=== PATIENT | female | born 1985 | race Two or more races ===

== ENCOUNTER → 2017-06-16 | Outpatient (CLI) | payer SELFPAY ==
[2017-06-16 09:47] LABS: ABSOLUTE EOSINOPHILS # (AUTO) 0.2 10^3/uL (0.0-0.6); ABSOLUTE LYMPHOCYTES (AUTO) 1.8 10^3/uL (0.5-4.7); ABSOLUTE MONOCYTES (AUTO) 0.5 10^3/uL (0.1-1.4); ABSOLUTE NEUT (AUTO) 7.4 10^3/uL (1.7-8.2); BASOPHILS % (AUTO) 0.5 % (0-2); EOSINOPHILS % (AUTO) 1.6 % (0-6); HEMATOCRIT 38.5 % (36.0-47.0); HEMOGLOBIN 13.4 g/dL (12.0-15.5); HGB HCT DIFFERENCE 1.7; LYMPHOCYTES % (AUTO) 18.6 % (13-45); MEAN CORPUSCULAR HEMOGLOBIN 30.5 pg (27.0-33.4); MEAN CORPUSCULAR HGB CONC 34.7 g/dL (32.0-36.0); MEAN CORPUSCULAR VOLUME 88 fl (80-97); MONOCYTES % (AUTO) 4.8 % (3-13); RED BLOOD COUNT 4.38 10^6/uL (3.72-5.28); RED CELL DISTRIBUTION WIDTH 12.1 % (11.5-14.0); SEGMENTED NEUTROPHILS % (AUTO) 74.5 % (42-78); WHITE BLOOD COUNT 9.9 10^3/uL (4.0-10.5)
[2017-06-16 10:33] LABS: ALANINE AMINOTRANSFERASE 40 U/L (9-52); ALBUMIN 4.2 g/dL (3.5-5.0); ALKALINE PHOSPHATASE 80 U/L (38-126); ANION GAP 13 (5-19); ASPARTATE AMINO TRANSFERASE 21 U/L (14-36); BILIRUBIN,DIRECT 0.2 mg/dL (0.0-0.4); BILIRUBIN,TOTAL 0.3 mg/dL (0.2-1.3); BLOOD UREA NITROGEN 7 mg/dL (7-20); CARBON DIOXIDE 24 mmol/L (22-30); CHLORIDE 105 mmol/L (98-107); CREATININE RESULT 0.59 mg/dL (0.52-1.25); GLUCOSE 77 mg/dL (75-110); POTASSIUM 4.6 mmol/L (3.6-5.0); SODIUM 142.2 mmol/L (137-145)
[2017-06-16 11:01] LABS: THYROID STIMULATING HORMONE 0.27 uIU/mL (0.47-4.68)
== END ==
LOC: OD 08:44
PROVIDERS: ATTEND Internal Medicine
DX: E04.9 Nontoxic goiter, unspecified (principal)
CPT/HCPCS: 36415; 80053; 84439; 84443; 85025

== ENCOUNTER → 2017-06-20 | Outpatient (CLI) | payer SELFPAY | LOC: OD 11:57 | PROVIDERS: ATTEND Internal Medicine | DX: E03.9 Hypothyroidism, unspecified (principal); Z53.9 Procedure and treatment not carried out, unspecified reason ==

== ENCOUNTER 2018-07-20 10:58 | Emergency (ER) | payer SELFPAY ==
[2018-07-20 11:04] VITALS: BP 142/87
--- NOTE | 2018-07-20 11:56 | ER Document Report ---
HPI - HPI Patient complains to provider of: hand pain Time Seen by Provider: 07/20/18 11:11 Onset: Other - 2 days Onset/Duration: Gradual Quality of pain: Other - Numbness and tingling to both left and right hand and arm. Started 2 days ago when her father in [place] Pain Level: 0 Associated Symptoms: Other - Anxiety stress numbness and tingling in both arms and hands after her father 2 days ago Relieved by: Denies Similar symptoms previously: Yes Recently seen / treated by doctor: No - ROS ROS below otherwise negative: Yes - CONSTITUTIONAL Constitutional: DENIES: Fever, Chills - EENT EENT: DENIES: Sore Throat, Ear Pain, Nasal Drainage-Clear, Nasal Drainage- Purulent, Congestion, Eye problems - CARDIOVASCULAR Cardiovascular: DENIES: Chest pain - RESPIRATORY Respiratory: DENIES: Trouble Breathing, Coughing - GASTROINTESTINAL Gastrointestinal: DENIES: Abdominal Pain, Nausea, Patient vomiting, Diarrhea, Constipation, Black / Bloody Stools - URINARY Urinary: DENIES: Dysuria, Urgency, Frequency - REPRODUCTIVE Reproductive: DENIES: :, Postmenopausal, Abnormal bleeding / discharge - MUSCULOSKELETAL Musculoskeletal: REPORTS: Extremity pain. DENIES: Back Pain, Neck Pain, Swelling - DERM Skin Color: Normal Skin Problems: None Past Medical History - General Information source: Patient - Social History Smoking Status: Never Smoker Cigarette use (# per day): No Chew tobacco use (# tins/day): No Smoking Education Provided: No Frequency of alcohol use: None Drug Abuse: None Lives with: Family Family History: Reviewed & Not Pertinent Patient has suicidal ideation: No Patient has homicidal ideation: No - Past Medical History Cardiac Medical History: Reports: None Pulmonary Medical History: Reports: None EENT Medical History: Reports: None Neurological Medical History: Reports: None Endocrine Medical History: Reports: None Renal/ Medical History: Reports: None Malignancy Medical History: Reports: None GI Medical History: Reports: None Musculoskeletal Medical History: Reports None Skin Medical History: Reports None Traumatic Medical History: Reports: None Infectious Medical History: Reports: None Surgical Hx: Negative Past Surgical History: Reports: None - Immunizations Immunizations up to date: Yes Vertical Provider Document - CONSTITUTIONAL Agree With Documented VS: Yes Exam Limitations: No Limitations General Appearance: WD/WN, No Apparent Distress - INFECTION CONTROL TRAVEL OUTSIDE OF THE [place] IN LAST 30 DAYS: No - HEENT HEENT: Atraumatic, Normal ENT Exam, Normocephalic, PERRLA - NECK Neck: Normal Inspection, Supple - RESPIRATORY Respiratory: Breath Sounds Normal, No Respiratory Distress, Chest Non-Tender - CARDIOVASCULAR Cardiovascular: Regular Rate, Regular Rhythm - GI/ABDOMEN Gastrointestinal: Abdomen Soft, Abdomen Non-Tender, No Organomegaly, Normal Bowel Sounds - MUSCULOSKELETAL/EXTREMETIES Musculoskeletal/Extremeties: MAEW, FROM, Non-Tender Notes: Patient has 5 out of 5 strength to shoulder elbow and wrist. 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 Patient has full range of motion to shoulders elbows and wrist. Patient is very anxious concerning her father passing away 2 days ago. States father lived in [place] and they gave him the wrong medicine causing him to . states she is very tearful since her father and all of her problems have started since her problem father - NEURO Level of Consciousness: Awake, Alert, Appropriate Motor/Sensory: No Motor Deficit, No Sensory Deficit Deep Tendon Reflexes: 2+ - DERM Integumentary: Warm, Dry, No Rash Course - Re-evaluation Re-evalutation: 07/20/18 11:59 Patient very anxious concerning her father's recent . She states that he was living in [place] and he was given the wrong medication and that he . Patient has a primary care doctor at [facility]. Patient was advised to go to [facility] and schedule an appointment to follow-up to monitor her anxiety and her pain in her arms. There is no acute injuries or acute changes in her health except for the stress from her father's . Discussed with Dr. Allen and she agreed patient should follow-up with her primary doctor. Will discharge home. - Vital Signs Vital signs: Temp Pulse Resp BP Pulse Ox 98.4 F 76 14 142/87 H 98 07/20/18 11:02 07/20/18 11:02 07/20/18 11:02 07/20/18 11:02 07/20/18 11:02 Discharge - Discharge Clinical Impression: Bilateral hand pain, anxiety parent Condition: Stable Disposition: HOME, SELF-CARE Additional Instructions: Arm Pain, Nonspecific We did not find an obvious cause for your arm pain. There's no sign of blood clot, infection, heart attack, stroke, or other serious disease. Most of the time, this type of pain goes away. If it does, no further evaluation is necessary. If pain continues or keeps coming back, we can do further testing. Possible causes of vague arm pain include muscle or joint inflammation, disc disease in the neck, pressure on the nerves and artery in the chest or armpit ("thoracic outlet syndrome"), or heart disease. Rest the arm. Pain can be eased with an antiinflammatory pain medicine such as ibuprofen. If the pain involves a small area, a heating pad might help. Call the doctor or return if the arm becomes swollen, weak, discolored, or increasingly painful, or if you develop any other significant change in your health. Anxiety The physician feels that some of your health problems are being caused by anxiety. Anxiety affects your health in many ways. Anxiety alone can cause palpitations, sweats, chest pains, abdominal pains, shortness of breath, and headaches. It contributes to ulcer disease, high blood pressure, irritable bowel syndrome, and has been shown to cause flare-ups of many other diseases. Anxiety is not a simple disorder to treat. If the anxiety is due to recent life stresses, you may simply need time to "work through" the changes. If the anxiety is due to an underlying unhappiness with yourself or due to psychiatric disturbance, professional help will be needed. Your physician can refer you for further help if needed. Anti-anxiety medication is occasionally given if the stress is acute or if you are having trouble sleeping. Chronic or frequent use of these medications is not a good idea because the body becomes reliant on it, preventing you from dealing with life's normal stresses. Acetaminophen Acetaminophen may be taken for pain relief or fever control. It's much safer than aspirin, offering a wider range of "safe" dosages. It is safe during . Some brand names are Tylenol, Panadol, Datril, Anacin 3, Tempra, and Liquiprin. Acetaminophen can be repeated every four hours. The following are maximum recommended dosages: WEIGHT Dose Drops Elixir Chewable( 80mg) (LBS.) drprs=droppers tsp=teaspoon 6 40 mg .4 ml (1/2) 6-11 80 mg .8 ml (full) 1/2 tsp 1 tab 12-16 120 mg 1 1/2 drprs 3/4 tsp 1 1/2 tabs 17-23 160 mg 2 drprs 1 tsp 2 tabs 24-30 240 mg 3 drprs 1 1/2 tsp 3 tabs 30-35 320 mg 2 tsp 4 tabs 36-41 360 mg 2 1/4 tsp 4 1 /2 tabs 42-47 400 mg 2 1/2 tsp 5 tabs 48-53 480 mg 3 tsp 6 tabs 54-59 520 mg 3 1/4 tsp 6 1 /2 tabs 60-64 560 mg 3 1/2 tsp 7 tabs 65-70 600 mg 3 3/4 tsp 7 1 /2 tabs 71-76 640 mg 4 tsp 8 tabs 77-82 720 mg 4 1/2 tsp 9 tabs 83-88 800 mg 5 tsp 10 tabs >89 pounds or adults 650 mg to 900 mg Acetaminophen can be repeated every four hours. Maximum daily dose not to exceed 4000 mg. These maximum recommended dosages are slightly higher than the dosages written on the product container, but these dosages are very safe and well below the toxic dosage for acetaminophen. Ibuprofen Ibuprofen is an excellent, safe drug for pain control. In addition, it has potent antiinflammatory effects which are beneficial, especially in the treatment of injuries, arthritis, or tendonitis. It's best to take ibuprofen with food. Persons with ulcer disease or allergy to aspirin should notify their physician of this before taking ibuprofen. Take the medication exactly as prescribed. Don't take additional doses unless instructed to do so by your doctor. If you develop wheezing, shortness of breath, hives, faintness, stomach pain, vomiting, or dark black stools, return for re-evaluation at once. Please call your primary doctor and schedule a follow-up appointment to ensure that you are pain to bilateral arms and hands resolves. [facility] FOLLOW-UP CARE: If you have been referred to a physician for follow-up care, call the physician s office for an appointment as you were instructed or within the next two days. If you experience worsening or a significant change in your symptoms, notify the physician immediately or return to the Emergency Department at any time for re-evaluation. Forms: Elevated Blood Pressure
== END 2018-07-20 11:59 | disposition home or self-care (01) ==
LOC: ER 10:58
DX: M79.641 Pain in right hand (principal); M79.642 Pain in left hand; F41.9 Anxiety disorder, unspecified; R20.0 Anesthesia of skin; R20.2 Paresthesia of skin; Z63.4 Disappearance and death of family member
CPT/HCPCS: 99283

== ENCOUNTER 2018-08-25 17:48 | Emergency (ER) | payer SELFPAY ==
--- NOTE | 2018-08-25 19:43 | ER Document Report ---
Addendum entered and electronically signed by EFRAÍN LAZO PA-C 08/26/18 08:46: Course - Re-evaluation Re-evalutation: 08/26/18 08:39 Of note, patient initially complained of bilateral adnexal pain then RLQ pain. Her abdominal exam was overall unremarkable: negative McBurney's point tenderness, negative psoas sign, no guarding or rebound tenderness, and when I struck her right heel there was no referred RLQ pain. Appendicitis was on my differential but I have low suspicion for it. Conversely, though, I could not elicit acute tenderness to deep palpation in the lower abdomen. But, with the c ervical motion tenderness and moderate white mucus discharge, bilateral pelvic pain, the diagnosis of PID is what I am most suspicious of and concerned for. Cervical os was visualized and not friable. - Vital Signs Vital signs: Temp Pulse Resp BP Pulse Ox 98.7 F 80 16 129/76 H 100 08/25/18 17:58 08/26/18 00:07 08/26/18 00:07 08/26/18 00:07 08/26/18 00:07 - Laboratory Result Diagrams: 08/25/18 19:56 08/25/18 19:56 Laboratory results interpreted by me: 08/25/18 08/25/18 19:56 19:56 WBC 15.8 H Absolute Neutrophils 11.1 H Sodium 135.7 L Potassium 3.5 L Beta HCG, Quant 39851.00 H Addendum entered and electronically signed by EFRAÍN LAZO PA-C 08/26/18 08:35: Course - Re-evaluation Re-evalutation: 08/26/18 08:34 Chlamydia and gonorrhea resulted negative. Spoke with [facility] hotel front desk clerk and confirmed patient has an appointment this morning for close follow up. - Vital Signs Vital signs: Temp Pulse Resp BP Pulse Ox 98.7 F 80 16 129/76 H 100 08/25/18 17:58 08/26/18 00:07 08/26/18 00:07 08/26/18 00:07 08/26/18 00:07 - Laboratory Result Diagrams: 08/25/18 19:56 08/25/18 19:56 Laboratory results interpreted by me: 08/25/18 08/25/18 19:56 19:56 WBC 15.8 H Absolute Neutrophils 11.1 H Sodium 135.7 L Potassium 3.5 L Beta HCG, Quant 30367.00 H Addendum entered and electronically signed by EFRAÍN LAZO PA-C 08/26/18 00:40: Course - Re-evaluation Re-evalutation: 08/26/18 00:[address] Allen after speaking with Dr. Park. Clarified that Dr. Park stated not to treat right now because of concerns for first trimester teratogenicity with the medications. I asked him if he wanted us to treat with doxycycline plus or minus Flagyl. He stated no do not treated with anything and just have her follow up. Chlamydia and gonorrhea were still pending. Plan is to follow-up on these labs tomorrow morning and if the Chlamydia gonorrhea is positive plan to call the patient and call the women's clinic. - Vital Signs Vital signs: Temp Pulse Resp BP Pulse Ox 98.7 F 80 16 129/76 H 100 08/25/18 17:58 08/26/18 00:07 08/26/18 00:07 08/26/18 00:07 08/26/18 00:07 - Laboratory Result Diagrams: 08/25/18 19:56 08/25/18 19:56 Laboratory results interpreted by me: 08/25/18 08/25/18 19:56 19:56 WBC 15.8 H Absolute Neutrophils 11.1 H Sodium 135.7 L Potassium 3.5 L Beta HCG, Quant 11285.00 H Addendum entered and electronically signed by EFRAÍN LAZO PA-C 08/26/18 00:02: Discharge - Discharge Clinical Impression: PID (acute pelvic inflammatory disease) Condition: Good Disposition: HOME, SELF-CARE Additional Instructions: You were seen in the emergency department this evening for abdominal pain. Pelvic exam did show us that you have pelvic inflammatory disease. I spoke with the on-call voltmeter operator who says it is too risky to treat you with the appropriate antibiotics at this time. It is critical and extremely important that you follow-up with your voltmeter operator at the women's clinic tomorrow morning. If you develop high fever, vaginal bleeding, severe abdominal pain please immediately return to the emergency department. If you pass out or become lightheaded with bleeding please return to the emergency department. Referrals: JAGDISH VILLASENOR FNP [Primary Care Provider] - Follow up as needed Original Note: ED General - General Chief Complaint: OB Problem (<20wks) Stated Complaint: ABDOMINAL PAIN, BACK PAIN Time Seen by Provider: 08/25/18 19:17 Notes: 33-year-old Norwegian-speaking female presents to the emergency department for left adnexal pain times 3 days. Patient states the pain feels like she is having a contraction that radiates around to her left lower back. Patient denies any vaginal bleeding. Patient states there was a small amount of white discharge yesterday one time. Patient denies any urinary symptoms. Patient denies fevers, chills, nausea, vomiting, diarrhea. Patient denies chest pain or dyspnea. Patient is unsure of her Rh factor but states she has never had to receive RhoGam shot before. TRAVEL OUTSIDE OF THE [place] IN LAST 30 DAYS: No - Related Data Allergies/Adverse Reactions: No Known Allergies Allergy (Verified 08/25/18 17:48) Past Medical History - Social History Smoking Status: Never Smoker Chew tobacco use (# tins/day): No Frequency of alcohol use: None Drug Abuse: None Family History: Reviewed & Not Pertinent Patient has suicidal ideation: No Patient has homicidal ideation: No Renal/ Medical History: Denies: Hx Peritoneal Dialysis - Immunizations Immunizations up to date: Yes Review of Systems - Review of Systems Constitutional: See HPI EENT: No symptoms reported Cardiovascular: See HPI Respiratory: See HPI Gastrointestinal: See HPI Genitourinary: See HPI Female Genitourinary: See HPI Musculoskeletal: No symptoms reported Skin: No symptoms reported Hematologic/Lymphatic: No symptoms reported Neurological/Psychological: No symptoms reported Physical Exam - Vital signs Vitals: Temp Pulse Resp BP Pulse Ox 98.7 F 71 17 132/73 H 100 08/25/18 17:58 08/25/18 17:58 08/25/18 17:58 08/25/18 17:58 08/25/18 17:58 - Notes Notes: PHYSICAL EXAMINATION: Reviewed vital signs and charting by RN GENERAL: Alert, interacts well. No acute distress. HEAD: Normocephalic, atraumatic. EYES: Pupils equal, round. Extraocular movements intact. ENT: Oral mucosa moist. NECK: Full range of motion. Trachea midline. LUNGS: Clear to auscultation bilaterally, no wheezes, rales, or rhonchi. No respiratory distress. HEART: Regular rate and rhythm. No murmur ABDOMEN: soft, mild suprapubic tenderness to palpation and mild tenderness to palpation in the left adnexal area. Non-distended. Bowel sounds present in all 4 quadrants. no McBurney's point tenderness, no Cardenas sign. EXTREMITIES: Moves all 4 extremities spontaneously. No edema, No cyanosis. NEUROLOGICAL: Alert and oriented x3. Normal speech. PSYCH: Normal affect, normal mood. SKIN: Warm, dry, normal turgor. No rashes or lesions noted. Course - Re-evaluation Re-evalutation: 08/25/18 19:42 Norwegian-speaking 33-year-old female presents for left adnexal pain. She is being followed at the women's clinic for active . Plan is to obtain a transvaginal ultrasound and some basic blood work. 08/25/18 23:52 Transvaginal ultrasound did show an intrauterine measured at 5 weeks 5 days with no heart tones because it is too early. Lab work showed a leukocytosis of 15,800. Pelvic exam revealed 4+ epithelial cells, 4+ bacteria, few WBCs, patient did have cervical motion tenderness and left adnexal tenderness. I spoke with Dr. Park, on-call OB, and his recommendation was not to treat and to avoid treatment in first trimester. He recommended close follow-up with OB this week. Plan is to discharge patient with strict follow-up instructions with OB in the morning. - Vital Signs Vital signs: Temp Pulse Resp BP Pulse Ox 98.7 F 71 17 132/73 H 100 08/25/18 17:58 08/25/18 17:58 08/25/18 17:58 08/25/18 17:58 08/25/18 17:58 - Laboratory Result Diagrams: 08/25/18 19:56 08/25/18 19:56 Laboratory results interpreted by me: 08/25/18 08/25/18 19:56 19:56 WBC 15.8 H Absolute Neutrophils 11.1 H Sodium 135.7 L Potassium 3.5 L Beta HCG, Quant 51528.00 H Discharge - Discharge Clinical Impression: PID (acute pelvic inflammatory disease) Condition: Good Disposition: HOME, SELF-CARE Additional Instructions: You were seen in the emergency department this evening for abdominal pain. Pelvic exam did show us that you have pelvic inflammatory disease. I spoke with the on-call voltmeter operator who says it is too risky to treat you with the a ppropriate antibiotics at this time. It is critical and extremely important that you follow-up with your voltmeter operator at the women's clinic tomorrow morning. If you develop high fever, vaginal bleeding, severe abdominal pain please immediately return to the emergency department. If you pass out or become lightheaded with bleeding please return to the emergency department.
[2018-08-25 20:12] LABS: ABSOLUTE EOSINOPHILS # (AUTO) 0.3 10^3/uL (0.0-0.6); ABSOLUTE LYMPHOCYTES (AUTO) 3.5 10^3/uL (0.5-4.7); ABSOLUTE MONOCYTES (AUTO) 0.8 10^3/uL (0.1-1.4); ABSOLUTE NEUT (AUTO) 11.1 10^3/uL (1.7-8.2); BASOPHILS % (AUTO) 0.2 % (0-2); EOSINOPHILS % (AUTO) 2.1 % (0-6); HEMATOCRIT 40.1 % (36.0-47.0); HEMOGLOBIN 13.7 g/dL (12.0-15.5); LYMPHOCYTES % (AUTO) 22.2 % (13-45); MEAN CORPUSCULAR HEMOGLOBIN 31.1 pg (27.0-33.4); MEAN CORPUSCULAR HGB CONC 34.1 g/dL (32.0-36.0); MEAN CORPUSCULAR VOLUME 91 fl (80-97); MONOCYTES % (AUTO) 5.3 % (3-13); PLATELET COUNT 231 10^3/uL (150-450); RED CELL DISTRIBUTION WIDTH 12.8 % (11.5-14.0); SEGMENTED NEUTROPHILS % (AUTO) 70.2 % (42-78); TOTAL CELLS COUNTED % (AUTO) 100 %; WHITE BLOOD COUNT 15.8 10^3/uL (4.0-10.5)
[2018-08-25 20:21] LABS: AMORPHOUS SEDIMENT,URINE TRACE /HPF; APPEARANCE,URINE CLOUDY; BILIRUBIN,URINE NEGATIVE (NEGATIVE); COLOR,URINE YELLOW; GLUCOSE, URINE NEGATIVE (NEGATIVE); KETONES,URINE NEGATIVE (NEGATIVE); LEUKOCYTE ESTERASE,URINE NEGATIVE (NEGATIVE); NITRITE,URINE NEGATIVE (NEGATIVE); PROTEIN,URINE NEGATIVE (NEGATIVE); URINE SPECIFIC GRAVITY 1.018; UROBILINOGEN,URINE NEGATIVE mg/dL (<2.0)
[2018-08-25 20:40] LABS: ALANINE AMINOTRANSFERASE 52 U/L (9-52); ALBUMIN 4.6 g/dL (3.5-5.0); ALKALINE PHOSPHATASE 59 U/L (38-126); ANION GAP 10 (5-19); ASPARTATE AMINO TRANSFERASE 26 U/L (14-36); BILIRUBIN,DIRECT 0.2 mg/dL (0.0-0.4); BILIRUBIN,TOTAL 0.3 mg/dL (0.2-1.3); BLOOD UREA NITROGEN 12 mg/dL (7-20); CALCIUM 9.5 mg/dL (8.4-10.2); CARBON DIOXIDE 24 mmol/L (22-30); CHLORIDE 102 mmol/L (98-107); GLUCOSE 86 mg/dL (75-110); POTASSIUM 3.5 mmol/L (3.6-5.0); SODIUM 135.7 mmol/L (137-145); TOTAL PROTEIN 7.1 g/dL (6.3-8.2)
--- NOTE | 2018-08-25 21:02 | RADIOLOGY REPORT (SQ) ---
EXAM DESCRIPTION: US TRANSVAGINAL COMPLETED DATE/TME: 08/25/2018 19:28 CLINICAL HISTORY: 33 years, Female, low abd pain COMPARISON: None. TECHNIQUE: Transverse and longitudinal transvaginal sonographic images in a first trimester patient LIMITATIONS: None. FINDINGS: The uterus measures 7.9 x 4.2 x 5.1 cm. The maternal right ovary measures 3.6 x 2.2 x 3.1 cm, the left 1.7 x 1.0 x 1.6 cm. Minimal flow to both ovaries. Cervical length is 3.1 cm. There is a 1.7 x 1.5 cm cyst of the right ovary likely corpus luteal cyst. No solid adnexal mass. No free fluid. There is an intrauterine gestational sac with visible yolk sac. No visible pole or detectable heart tones at this time. Current ultrasound age is 5 weeks 5 days based on a mean sac diameter of 0.9 cm. IMPRESSION: Intrauterine gestational sac with visible yolk sac however no visible pole at this time or detectable heart tones. Current ultrasound age is 5 weeks 5 days. Close obstetric follow-up recommended. Correlate with beta hCG levels. Probable corpus luteal cyst of the right ovary. copyright 2010 [employer]- All Rights Reserved
[2018-08-25 23:08] LABS: BACTERIA (WET MOUNT) 4+ BACTERIA SEEN; EPITHELIALS (WET MOUNT) 4+ EPITHELIALS SEEN; T.VAGINALIS (WET MOUNT) NO TRICHOMONAS SEEN; WBCS (WET MOUNT) RARE WBCS SEEN; YEAST (WET MOUNT) NO YEAST SEEN
[2018-08-26 00:09] VITALS: BP 129/76
[2018-08-26 00:38] LABS: CHLAM PCR NOT DETECTED (NOT DETECT); GON PCR NOT DETECTED (NOT DETECT)
== END 2018-08-26 00:09 | disposition home or self-care (01) ==
LOC: ER 17:48
DX: N73.9 Female pelvic inflammatory disease, unspecified (principal); R10.31 Right lower quadrant pain; M54.5 Low back pain
CPT/HCPCS: 36415; 76817; 80053; 81001; 84702; 85025; 86900; 86901; 87210; 87491; 87591; 93976; 99284

== ENCOUNTER 2018-10-05 18:15 | Emergency (ER) | payer SELFPAY ==
--- NOTE | 2018-10-05 20:18 | ER Document Report ---
ED GI/ - General Chief Complaint: Nausea/Vomiting/Diarrhea Stated Complaint: VOMITING Time Seen by Provider: 10/05/18 20:16 Primary Care Provider: JAGDISH VILLASENOR FNP [Primary Care Provider] - Follow up as needed Mode of Arrival: Ambulatory Information source: Patient Notes: HISTORY OF PRESENT ILLNESS: Patient is a 33-year-old female at approximately 11 weeks with no significant past medical history who presents with upper abdominal "burning" with nausea and one episode of diarrhea. The patient denies known sick contacts, denies having issues in in the past. Location: Upper abdomen Onset: Sudden Alleviation: None Provocation: Unknown Quality: "Burning" Radiation: None Severity: Mild to moderate Timing: Intermittent History of abdominal surgery: None Associated symptoms: No fevers or chills, no vaginal bleeding or discharge, nonbloody and nonbilious vomiting/diarrhea Last bowel movement: Today and diarrhea Last menstrual period: Currently 11 weeks REVIEW OF SYSTEMS: CONSTITUTIONAL : Denies fever or chills, no sweats. Denies recent illness. EENT: Denies eye, ear, throat, or mouth pain or symptoms. Denies nasal or sinus congestion. CARDIOVASCULAR: Denies chest pain. Denies swelling of the legs. RESPIRATORY: Denies cough, cold, or chest congestion. Denies shortness of breath or difficulty breathing. Denies wheezing. GASTROINTESTINAL: Positive for abdominal pain. Positive for nonbloody and nonbilious emesis with nonbloody diarrhea. Denies constipation. GENITOURINARY: Denies difficulty urinating, painful urination, burning, frequency, or blood in urine. FEMALE GENITOURINARY: Denies vaginal bleeding, abnormal or irregular periods. MUSCULOSKELETAL: Denies neck or back pain or joint pain or swelling. SKIN: Denies rash or skin lesions. HEMATOLOGIC : Denies easy bruising or bleeding. LYMPHATIC: Denies swollen, enlarged glands. NEUROLOGICAL: Denies altered mental status or loss of consciousness. Denies headache. Denies weakness or paralysis or loss of use of either side. Denies problems with gait or speech. Denies sensory or motor loss. PSYCHIATRIC: Denies anxiety or stress or depression. All other systems reviewed and negative. PHYSICAL EXAMINATION: GENERAL: Well-appearing gravid female, well-nourished and in no acute distress. HEAD: Atraumatic, normocephalic. No scalp deformity, depression, or crepitance. EYES: Pupils are 3 mm and equal/round/reactive to light, extraocular movements intact, sclera anicteric, conjunctiva are normal. ENT: Nares patent bilaterally, oropharynx. Moist mucous membranes. No tonsil hypertrophy. NECK: Normal range of motion, supple without lymphadenopathy. LUNGS: Breath sounds present, equal, and clear to auscultation bilaterally. No wheezes, rales, or rhonchi. HEART: Regular rate and rhythm without murmurs, rubs, or gallops. 2+ peripheral pulses. Normal capillary refill. ABDOMEN: Soft, nontender, nondistended. Normoactive bowel sounds. No guarding, no rebound. No masses appreciated. BACK: Normal contour, no midline tenderness. Rectal exam deferred. GENITAL/PELVIC: Deferred. EXTREMITIES: Normal range of motion, no pitting or edema. No cyanosis. NEUROLOGICAL: No focal neurological deficits. Moves all extremities spontaneousl y and on command. PSYCH: Normal mood, normal affect. No suicidal thoughts/ideations. No homocidal thoughts/ideations. No hallucinations. SKIN: Warm, dry, normal turgor, no rashes or lesions noted. ASSESSMENT AND PLAN: This patient is a 33-year-old female at approximately 11 weeks who presents with upper epigastric burning with nausea and vomiting and one episode of diarrhea. Patient is nontoxic-appearing on exam. 1. Will obtain labs, urine, and reassess after intramuscular Phenergan. 2. Will consider vaginal ultrasound if no improvement or if patient has unusual findings on blood work. TRAVEL OUTSIDE OF THE [place] IN LAST 30 DAYS: No - Related Data Allergies/Adverse Reactions: No Known Allergies Allergy (Verified 08/25/18 17:48) Past Medical History - General Information source: Patient - Social History Smoking Status: Never Smoker Chew tobacco use (# tins/day): No Frequency of alcohol use: None Drug Abuse: None Lives with: Family Family History: Reviewed & Not Pertinent Patient has suicidal ideation: No Patient has homicidal ideation: No - Medical History Medical History: Negative - Past Medical History Cardiac Medical History: Reports: None Pulmonary Medical History: Reports: None EENT Medical History: Reports: None Neurological Medical History: Reports: None Endocrine Medical History: Reports: None Renal/ Medical History: Reports: None. Denies: Hx Peritoneal Dialysis Malignancy Medical History: Reports: None GI Medical History: Reports: None Musculoskeletal Medical History: Reports None Skin Medical History: Reports None Psychiatric Medical History: Reports: None Traumatic Medical History: Reports: None Infectious Medical History: Reports: None Surgical Hx: Negative Past Surgical History: Reports: None - Immunizations Immunizations up to date: Yes Physical Exam - Vital signs Vitals: Temp Pulse Resp BP Pulse Ox 98.9 F 73 16 123/65 100 10/05/18 18:43 10/05/18 18:43 10/05/18 18:43 10/05/18 18:43 10/05/18 18:43 Course - Re-evaluation Re-evalutation: 10/06/18 03:10 Labs and urine are normal. Patient initially had improvement with Phenergan but then had another episode of vomiting, intramuscular Benadryl was administered and the patient now can tolerate oral intake. She will be discharged home with return precautions and follow-up. Patient voices both understanding and agreeing with the plan. - Vital Signs Vital signs: Temp Pulse Resp BP Pulse Ox 98.7 F 62 20 118/56 L 97 10/06/18 01:57 10/06/18 01:57 10/06/18 01:57 10/06/18 01:57 10/06/18 01:57 - Laboratory Result Diagrams: 10/05/18 21:05 10/05/18 21:05 Laboratory results interpreted by me: 10/05/18 10/05/18 10/05/18 21:05 21:05 23:10 WBC 17.4 H Absolute Neutrophils 13.5 H Potassium 3.3 L Beta HCG, Quant 34629.00 H Urine Ketones 20 H Ur Leukocyte Esterase TRACE H Discharge - Discharge Clinical Impression: Gastroenteritis Condition: Good Disposition: HOME, SELF-CARE Instructions: Antinausea Medication ([facility]), Gastroenteritis (adult) ([facility]) Additional Instructions: You have been evaluated in the Emergency Department for vomiting, diarrhea, and abdominal burning. While here, you had blood work that was normal and were given medications with improvement of your symptoms and it is now safe to be discharged home. Please follow-up with your manager aerospace as instructed in 1 week to be rechecked. Return to the Emergency Department if you experience worse rufus pain, vaginal bleeding, vaginal discharge, uncontrollable vomiting, or any other concerning symptoms. Prescriptions: Metoclopramide HCl [Reglan 10 mg Tablet] 1 tab PO Q8HP PRN #30 tablet PRN Reason: For Nausea/Vomiting Omeprazole 20 mg PO DAILY #30 tablet. Referrals: JAGDISH VILLASENOR FNP [Primary Care Provider] - Follow up as needed Print Language: Cambodian
[2018-10-05] MEDS ORDERED: METOCLOPRAMIDE HCL 10 MG TABLET PO ONE (20:52)
[2018-10-05] MEDS ORDERED: SUCRALFATE SUSP 1 GM/10 ML UDCUP PO ONE (20:52)
[2018-10-05] MEDS ORDERED: PROMETHAZINE HCL INJ 50 MG/1 ML VIAL IM ONE (20:57)
[2018-10-05 21:20] LABS: ABSOLUTE EOSINOPHILS # (AUTO) 0.2 10^3/uL (0.0-0.6); ABSOLUTE LYMPHOCYTES (AUTO) 2.8 10^3/uL (0.5-4.7); ABSOLUTE MONOCYTES (AUTO) 0.8 10^3/uL (0.1-1.4); ABSOLUTE NEUT (AUTO) 13.5 10^3/uL (1.7-8.2); BASOPHILS % (AUTO) 0.2 % (0-2); EOSINOPHILS % (AUTO) 1.3 % (0-6); HEMATOCRIT 39.8 % (36.0-47.0); HEMOGLOBIN 13.9 g/dL (12.0-15.5); MEAN CORPUSCULAR HEMOGLOBIN 31.1 pg (27.0-33.4); MEAN CORPUSCULAR HGB CONC 34.8 g/dL (32.0-36.0); MEAN CORPUSCULAR VOLUME 89 fl (80-97); MONOCYTES % (AUTO) 4.8 % (3-13); PLATELET COUNT 257 10^3/uL (150-450); RED BLOOD COUNT 4.46 10^6/uL (3.72-5.28); RED CELL DISTRIBUTION WIDTH 12.8 % (11.5-14.0); SEGMENTED NEUTROPHILS % (AUTO) 77.7 % (42-78); TOTAL CELLS COUNTED % (AUTO) 100 %; WHITE BLOOD COUNT 17.4 10^3/uL (4.0-10.5)
[2018-10-05 21:39] LABS: ALANINE AMINOTRANSFERASE 38 U/L (9-52); ALBUMIN 4.4 g/dL (3.5-5.0); ALKALINE PHOSPHATASE 59 U/L (38-126); ANION GAP 12 (5-19); ASPARTATE AMINO TRANSFERASE 22 U/L (14-36); BILIRUBIN,TOTAL 0.5 mg/dL (0.2-1.3); BLOOD UREA NITROGEN 7 mg/dL (7-20); CALCIUM 9.7 mg/dL (8.4-10.2); CARBON DIOXIDE 26 mmol/L (22-30); CHLORIDE 102 mmol/L (98-107); GLUCOSE 80 mg/dL (75-110); POTASSIUM 3.3 mmol/L (3.6-5.0)
[2018-10-05] MEDS ORDERED: LIDOCAINE 2% VISCOUS SOLN 20 ML UDCUP PO ONE (22:50)
[2018-10-05] MEDS ORDERED: MAG HYDROX/AL HYDROX/SIMETH SUSP 30 ML UDCUP PO ONE (22:50)
[2018-10-05 23:26] LABS: APPEARANCE,URINE CLOUDY; BILIRUBIN,URINE NEGATIVE (NEGATIVE); COLOR,URINE YELLOW; GLUCOSE, URINE NEGATIVE (NEGATIVE); KETONES,URINE 20 mg/dL (NEGATIVE); LEUKOCYTE ESTERASE,URINE TRACE (NEGATIVE); NITRITE,URINE NEGATIVE (NEGATIVE); PROTEIN,URINE NEGATIVE (NEGATIVE); URINE SPECIFIC GRAVITY 1.017; UROBILINOGEN,URINE NEGATIVE mg/dL (<2.0)
[2018-10-06] MEDS ORDERED: DIPHENHYDRAMINE HCL 50 MG/ML VIAL IM ONE (01:22)
[2018-10-06 03:42] VITALS: BP 125/73
== END 2018-10-06 04:00 | disposition home or self-care (01) ==
LOC: ER 18:15
DX: O26.91 Pregnancy related conditions, unspecified, first trimester (principal); K52.9 Noninfective gastroenteritis and colitis, unspecified; Z3A.11 11 weeks gestation of pregnancy
CPT/HCPCS: 99284; 96372; 36415; 84702; 85025; 80053; 81001; J1200; J3490; J2550

== ENCOUNTER → 2018-12-08 | Outpatient (CLI) | payer SELFPAY ==
--- NOTE | 2018-12-08 15:11 | RADIOLOGY REPORT (SQ) ---
EXAM DESCRIPTION: U/S OB 14+ TRNABD 1GES W/O DOP COMPLETED DATE/TIME: 12/08/2018 2:51 pm REASON FOR STUDY: Z34.82 ENCOUNTER FOR SUPRVSN OF NORMAL , SECOND TRIMESTER Z34.82 ENCOUNT ER FOR SUPRVSN OF NORMAL , SECOND TRI COMPARISON: 09/21/2018 TECHNIQUE: Static and Dynamic grayscale imaging performed of gravid uterus using transabdominal appr oach. Additional selected color Doppler and spectral images recorded. All stored on PACS. LIMITATIONS: None. FINDINGS: FETUSES SEEN:1 EGA: 20 weeks 3 days Calculated using BPD,FL,HC,AC documented on images. No discrepancy with clinica l dates. DEVON: 04/24/2019 EFW: 343 grams PERCENTILE: 86 ANTONY: 7.4 PLACENTA: Posterior and low-lying PRESENTATION: Cephalic. ANATOMY: HEART RATE: 150 beats per minute. FOUR CHAMBER HEART: Visualized. THREE VESSEL CORD: Yes. CORD INSERTION: Visualized. KIDNEYS AND BLADDER: Visualized. Appear normal. STOMACH: Visualized. Appears normal. SPINE: Normal as visualized. BRAIN AND LATERAL VENTRICLES: Visualized. Appear normal. OTHER: No other significant finding. MATERNAL ADNEXA: Maternal ovaries not visualized. CERVICAL LENGTH: 4.8 cm. Closed. OTHER: No other significant finding. IMPRESSION: LIVING INTRAUTERINE . ESTIMATED GESTATIONAL AGE: 20 weeks 3 days NO VISUALIZED ANOMALIES. Placenta is posterior and low-lying Trimester of : Second trimester - 13 weeks 1 day to 27 weeks 6 days. TECHNICAL DOCUMENTATION: JOB ID: [id number] [employer]- All Rights Reserved Reading location - IP/workstation name: [email or web address]
== END ==
LOC: RAD 13:40
PROVIDERS: ATTEND Midwife
DX: Z34.82 Encounter for supervision of other normal pregnancy, second trimester (principal)
CPT/HCPCS: 76805

== ENCOUNTER → 2019-02-03 | Outpatient (CLI) | payer SELFPAY ==
--- NOTE | 2019-02-03 16:05 | RADIOLOGY REPORT (SQ) ---
EXAM DESCRIPTION: U/S OB 14+ TRNABD 1GES W/O DOP COMPLETED DATE/TIME: 02/03/2019 2:47 pm REASON FOR STUDY: Z34.82 ENCOUNTER FOR SUPRVSN OF NORMAL , SECOND TRIMESTER Z34.82 ENCOUNT ER FOR SUPRVSN OF NORMAL , SECOND TRI COMPARISON: 12/08/2018 TECHNIQUE: Static and Dynamic grayscale imaging performed of gravid uterus using transabdominal appr oach. Additional selected color Doppler and spectral images recorded. All stored on PACS. LIMITATIONS: None. FINDINGS: FETUSES SEEN:1 EGA: 29 weeks 6 days Calculated using BPD,FL,HC,AC documented on images. No discrepancy with clinica l dates. DEVON: 04/15/2019 EFW: 1,403 grams PERCENTILE: 52nd. ANTONY: 13 cm PLACENTA: Placenta is posterior and no longer low lying. GRADE: I PRESENTATION: Cephalic. ANATOMY: HEART RATE: 143 beats per minute. FOUR CHAMBER HEART: Visualized. THREE VESSEL CORD: Yes. CORD INSERTION: Visualized. KIDNEYS AND BLADDER: Visualized. Appear normal. STOMACH: Visualized. Appears normal. SPINE: Normal as visualized. BRAIN AND LATERAL VENTRICLES: Visualized. Appear normal. OTHER: No other significant finding. MATERNAL ADNEXA: Maternal ovaries not visualized. CERVICAL LENGTH: 3.7 cm. Closed. OTHER: No other significant finding. IMPRESSION: LIVING INTRAUTERINE . ESTIMATED GESTATIONAL AGE 29 weeks 6 days NO VISUALIZED ANOMALIES. Trimester of : Third trimester - 28 weeks to delivery. TECHNICAL DOCUMENTATION: JOB ID: [id number] [employer]- All Rights Reserved Reading location - IP/workstation name: [email or web address]
== END ==
LOC: RAD 13:59
PROVIDERS: ATTEND Midwife
DX: Z34.83 Encounter for supervision of other normal pregnancy, third trimester (principal)
CPT/HCPCS: 76805

== ENCOUNTER → 2019-04-26 | Outpatient (CLI) | payer SELFPAY | LOC: OD 16:43 | PROVIDERS: ATTEND Midwife | DX: A60.09 Herpesviral infection of other urogenital tract (principal) | CPT/HCPCS: 36415 ==

== ENCOUNTER 2019-04-27 16:09 | Outpatient (CLI) | payer SELFPAY ==
[2019-04-27 16:16] LABS: APPEARANCE,URINE SLIGHTLY-CLOUDY; BILIRUBIN,URINE NEGATIVE (NEGATIVE); COLOR,URINE YELLOW; GLUCOSE, URINE NEGATIVE (NEGATIVE); KETONES,URINE NEGATIVE (NEGATIVE); LEUKOCYTE ESTERASE,URINE SMALL (NEGATIVE); NITRITE,URINE NEGATIVE (NEGATIVE); PROTEIN,URINE NEGATIVE (NEGATIVE); UROBILINOGEN,URINE NEGATIVE mg/dL (<2.0)
[2019-04-27 16:45] LABS: URINE AMPHETAMINES SCREEN NEGATIVE; URINE BARBITURATES SCREEN NEGATIVE; URINE BENZODIAZEPINES SCREEN NEGATIVE; URINE COCAINE SCREEN NEGATIVE; URINE MARIJUANA (THC) SCREEN NEGATIVE; URINE METHADONE SCREEN NEGATIVE; URINE PHENCYCLIDINE SCREEN NEGATIVE
[2019-04-27 17:28] LABS: ABSOLUTE EOSINOPHILS # (AUTO) 0.2 10^3/uL (0.0-0.6); ABSOLUTE LYMPHOCYTES (AUTO) 1.7 10^3/uL (0.5-4.7); ABSOLUTE MONOCYTES (AUTO) 0.9 10^3/uL (0.1-1.4); ABSOLUTE NEUT (AUTO) 10.2 10^3/uL (1.7-8.2); BASOPHILS % (AUTO) 0.2 % (0-2); EOSINOPHILS % (AUTO) 1.3 % (0-6); HEMATOCRIT 38.3 % (36.0-47.0); HEMOGLOBIN 13.1 g/dL (12.0-15.5); LYMPHOCYTES % (AUTO) 12.9 % (13-45); MEAN CORPUSCULAR HEMOGLOBIN 30.9 pg (27.0-33.4); MEAN CORPUSCULAR HGB CONC 34.1 g/dL (32.0-36.0); MEAN CORPUSCULAR VOLUME 91 fl (80-97); MONOCYTES % (AUTO) 6.6 % (3-13); PLATELET COUNT 228 10^3/uL (150-450); RED BLOOD COUNT 4.22 10^6/uL (3.72-5.28); RED CELL DISTRIBUTION WIDTH 13.7 % (11.5-14.0); TOTAL CELLS COUNTED % (AUTO) 100 %
[2019-04-27] MEDS ORDERED: VALACYCLOVIR HCL 500 MG TABLET PO ONE ×3 (18:00)
[2019-04-27] MEDS ORDERED: VALACYCLOVIR HCL 500 MG TABLET ONE (18:04)
[2019-04-27] MEDS ORDERED: HYDROXYZINE PAMOATE 50 MG CAPSULE ONE (18:49)
[2019-04-27] MEDS ORDERED: HYDROXYZINE PAMOATE 50 MG CAPSULE PO ONE ×3 (18:55)
== END 2019-04-27 19:03 | disposition home or self-care (01) ==
LOC: LC 16:09 → UNDODISIN 19:03 → LC 19:03 → EDSTATUS 19:31
PROVIDERS: ATTEND Obstetrics & Gynecology
PROC: 4A1HXCZ Monitoring of Products of Conception, Cardiac Rate, External Approach (ICD-10-PCS; principal; 2019-04-27)
DX: O48.0 Post-term pregnancy (principal); O09.523 Supervision of elderly multigravida, third trimester; Z3A.40 40 weeks gestation of pregnancy
CPT/HCPCS: 36415; 80307; 81005; 85025; 86592; 86850; 86900; 86901

== ENCOUNTER 2019-04-28 19:19 | Inpatient (IN) | payer SELFPAY ==
[2019-04-28] MEDS ORDERED: CITRIC ACID/SODIUM CITRATE ORAL SOLN 15 ML UDCUP ONE (19:55)
[2019-04-28] MEDS ORDERED: CEFAZOLIN INJ 1 GM VIAL ONE (19:55)
[2019-04-28] MEDS ORDERED: MIDAZOLAM 2 MG/2 ML INJ ONE (20:04)
[2019-04-28] MEDS ORDERED: FENTANYL CITRATE INJ/PF 100 MCG/2 ML AMPUL ONE ×2 (20:04→21:28)
[2019-04-28] MEDS ORDERED: ONDANSETRON HCL INJ/PF 4 MG/2 ML SDV ONE (20:04)
[2019-04-28] MEDS ORDERED: EPHEDRINE SULFATE INJ 50 MG/1 ML AMPULE ONE ×2 (20:04→20:07)
[2019-04-28] MEDS ORDERED: ACETAMINOPHEN 1,000 MG/100 ML RTUPB IV ONE (20:04)
[2019-04-28] MEDS ORDERED: KETOROLAC TROMETHAMINE INJ/PF 30 MG/1 ML SDV ONE (20:04)
[2019-04-28] MEDS ORDERED: OXYTOCIN 10 UNIT/ML VIAL ONE ×2 (20:04→20:12)
[2019-04-28] MEDS ORDERED: METHYLERGONOVINE MALEATE INJ/PF 0.2 MG/1 ML AMPULE ONE (20:05)
[2019-04-28] MEDS ORDERED: BUPIVACAINE HCL 0.25 % INJ/PF (2.5 MG/1 ML) 30 ML VIAL ONE (20:07)
[2019-04-28] MEDS ORDERED: FENTANYL/BUPIVACAINE/NS/PF 0 MCG/0 ML RTUINJ EPI ONE (20:07)
[2019-04-28] MEDS ORDERED: PENICILLIN G-K 5 MILLION UNIT VIAL ONE (20:08)
[2019-04-28] MEDS ORDERED: LIDOCAINE 2% INJ-PF (20 MG/ML) 10 ML AMPUL ONE (20:10)
[2019-04-28] MEDS ORDERED: MISOPROSTOL 0.2 MG TABLET ONE ×2 (20:12→23:32)
[2019-04-28] MEDS ORDERED: OXYTOCIN/NORMAL SALINE 0 UNIT/0 ML RTUINJ ONE (20:12)
[2019-04-28] MEDS ORDERED: LIDOCAINE 1% INJ-PF (10 MG/ML) 30 ML SDV ONE (20:12)
[2019-04-28 20:16] LABS: ABSOLUTE EOSINOPHILS # (AUTO) 0.2 10^3/uL (0.0-0.6); ABSOLUTE MONOCYTES (AUTO) 1.2 10^3/uL (0.1-1.4); ABSOLUTE NEUT (AUTO) 11.5 10^3/uL (1.7-8.2); BASOPHILS % (AUTO) 0.1 % (0-2); EOSINOPHILS % (AUTO) 1.2 % (0-6); HEMATOCRIT 36.6 % (36.0-47.0); HEMOGLOBIN 12.5 g/dL (12.0-15.5); LYMPHOCYTES % (AUTO) 13.5 % (13-45); MEAN CORPUSCULAR HEMOGLOBIN 30.6 pg (27.0-33.4); MEAN CORPUSCULAR HGB CONC 34.1 g/dL (32.0-36.0); MEAN CORPUSCULAR VOLUME 90 fl (80-97); MONOCYTES % (AUTO) 7.7 % (3-13); PLATELET COUNT 224 10^3/uL (150-450); RED BLOOD COUNT 4.07 10^6/uL (3.72-5.28); RED CELL DISTRIBUTION WIDTH 13.7 % (11.5-14.0); SEGMENTED NEUTROPHILS % (AUTO) 77.5 % (42-78); TOTAL CELLS COUNTED % (AUTO) 100 %; WHITE BLOOD COUNT 14.8 10^3/uL (4.0-10.5)
--- NOTE | 2019-04-28 20:22 | Admission Physical ---
Datetime Report Generated by CPN: 04/28/2019 20:22 CURRENT ADMISSION Chief Complaint: Uterine Contractions Indication for Induction: Not Applicable Admit Impression : Term, Intrauterine ; Active Labor; Intact Membranes Admit Plan: Admit to Unit; Initiate Section Protocol ALLERGIES Medication Allergies: Yes Medication Allergies: No Known Allergies (04/27/2019) Latex: No Latex Allergies OBSTETRICAL HISTORY EDC: 04/24/2019 00:00 : 3 Para: 2 Term: 2 : 0 SAB: 0 IAB: 0 Ectopic: 0 Livin Cesareans: 0 VBACs: 0 Multiple Births: 0 Current Procedures: Ultrasound; NST Obstetrical History Comments: G1- G2- G3 SEE RECORDS Alcohol: No Marijuana : No Cocaine: No Other Illicit Drugs: No Cigarettes: Former Smoker. [id number] MEDICAL HISTORY Medical History Comments: del both children in [place] INFECTIOUS HISTORY Genital Herpes: No Infectious History Comments: excoriated area on perienum PHYSICAL EXAM General: Normal HEENT: Normal Neurologic: Normal Thyroid: Normal Heart: Normal Lungs: Normal Breast: Normal Back: Normal Abdomen: Normal Genitourinary Exam: Normal Extremities: Normal DTRs: Normal Pelvic Type: Adequate Vital Signs: Reviewed; Within Normal Limits VAGINAL EXAM Dilatation: 5 Effacement: 100 Station: -2 Contraction Comments: q 2-3 MEMBRANES Membranes: Intact FETUS A EGA: 40.4 Monitoring: External US FHR- Baseline: 150s Variability: Moderate 6-25bpm Accelerations: 15X15 Decelerations: None FHR Category: Category I Admit Comment: presents to L_D c/o contractions. Her cervix is 5 cm. She is GBS Pos. She was seen in the office yesterday and stated that she had pain in her perineum. She was examined by Dian Singh CNM, who felt confident that she was having a herpetic outbreak. Cultures were obtained. Currently, cultures have not resulted. She was examined last night by Dr. Murdock, who did not see any active lesions. I see a place on her left labia which appears erythematous. I cannot be 100% certain that this is not a lesion. The risks and benefits of a Primary LTCS were discussed with her again. The intepretor was present. She has decided to have the surgery. PLANS FOR LABOR AND DELIVERY Labor and Delivery: None Pain Management: None Feeding Preference: Breast Benefit of Breast Feed Discussed: Yes Circumcision: No INFORMED CONSENT Signature: with User ID: [email or web address]
[2019-04-28] MEDS ORDERED: FENTANYL CITRATE INJ/PF 100 MCG/2 ML AMPUL IV PRN ×3 (21:11)
[2019-04-28] MEDS ORDERED: OXYCODONE-ACETAMINOPHEN 5-325 MG TABLET PO PRN ×3 (21:11→21:39)
[2019-04-28] MEDS ORDERED: MORPHINE SULFATE 10 MG/ML INJ IV PRN (21:11)
[2019-04-28] MEDS ORDERED: PROMETHAZINE HCL INJ 25 MG/1 ML VIAL IV PRN ×3 (21:11→21:39)
[2019-04-28] MEDS ORDERED: DIPHENHYDRAMINE HCL 50 MG/ML VIAL IV PRN (21:11)
[2019-04-28] MEDS ORDERED: ONDANSETRON HCL INJ/PF 4 MG/2 ML SDV IV PRN (21:11)
[2019-04-28] MEDS ORDERED: MEPERIDINE HCL/PF INJ 25 MG/1 ML DISP.SYRIN IV PRN (21:11)
[2019-04-28] MEDS ORDERED: PROPOFOL INJ 200 MG/20 ML VIAL IV ONE (21:15)
[2019-04-28] MEDS ORDERED: OXYTOCIN/NORMAL SALINE 20 UNIT/1,000 ML RTUINJ ONE (21:28)
--- NOTE | 2019-04-28 21:29 | PDOC DELIVERY SUMMARY ---
Delivery Summary - Maternal Hx : III Hx Para: II Hx # Term Pregnancies: 2 Hx # Pregnancies: 0 Number of Living Children: 3 DEVON: 04/24/19 Gestational Age: 40.2 Risk Factors: Other - possible herpes outbreak Ruptured Membranes: AROM Fluids: Clear - Delivery Presentation: Vertex Heart Rate Monitoring: Externally Uterine Contraction Monitoring: External Support Person Present: Yes Location: LD : Primary Placenta: Within Normal Limits Placenta Description: Normal-appearing Number of Vessels (Cord): 3 Nuchal Cord: No Delivery of Placenta Date: 04/28/19 - Medications Type of Anesthesia:: Epidural - Delivery Personnel MD: JULIA MORIN
[2019-04-28] MEDS ORDERED: RINGERS SOLUTION,LACTATED 1,000 ML IV PRN (21:39)
[2019-04-28] MEDS ORDERED: DIPH/PERTUSS(ACELL)/TETANUS VAC/PF 0.5 ML SYR (>=10YO) IM PRN (21:39)
[2019-04-28] MEDS ORDERED: ACETAMINOPHEN 325 MG TABLET PO PRN (21:39)
[2019-04-28] MEDS ORDERED: OXYTOCIN/NORMAL SALINE 20 UNIT/1,000 ML RTUINJ IV PRN (21:39)
[2019-04-28] MEDS ORDERED: ACETAMINOPHEN 1,000 MG/100 ML RTUPB IV PRN (21:39)
[2019-04-28 21:41] LABS: APPEARANCE,URINE CLEAR; BILIRUBIN,URINE NEGATIVE (NEGATIVE); COLOR,URINE STRAW; GLUCOSE, URINE NEGATIVE (NEGATIVE); KETONES,URINE NEGATIVE (NEGATIVE); LEUKOCYTE ESTERASE,URINE NEGATIVE (NEGATIVE); NITRITE,URINE NEGATIVE (NEGATIVE); PROTEIN,URINE NEGATIVE (NEGATIVE); URINE SPECIFIC GRAVITY 1.005; UROBILINOGEN,URINE NEGATIVE mg/dL (<2.0)
--- NOTE | 2019-04-28 21:48 | Operative Report ---
Operative Report DATE OF SURGERY: 04/28/19 PREOPERATIVE DIAGNOSIS: 1. Intrauterine at 40-2/7 weeks. 2. Possib le HSV 2 outbreak. 3. GBS positive. 4. Active labor. 5. Rubella immune. 6. Rh+ POSTOPERATIVE DIAGNOSIS: same OPERATION: Primary Low Transverse Section via Pfannenstiel SURGEON: JULIA POP ANESTHESIA: Epidural TISSUE REMOVED OR ALTERED: Placenta COMPLICATIONS: none QUANTITATIVE BLOOD LOSS: 1,590 INTRAOPERATIVE FINDINGS: Male with a cephalic presentation at 2142; normal-appearing uterus, bilateral tubes and ovaries PROCEDURE: The patient was taken to the operating room where spinal anesthesia was obtained and found to be adequate. She was then prepped and draped in the normal sterile fashion and placed in the dorsal supine position with a leftward tilt. A Pfannenstiel skin incision was then made and carried through to the underlying layers of the fascia with the scalpel. The fascia was incised in the midline and the incision extended laterally with the Mendez scissors. The superior aspect of the fascial incision was then grasped with Gopal clamps elevated and the underlying rectus muscles dissected off both bluntly and sharply. Attention was then turned to the inferior aspect of the fascial incision which in a similar fashion was grasped, tented up with Gopal clamps, and the rectus muscles dissected off both bluntly and sharply. The rectus muscles were then in the midline and the peritoneum was identified and entered both sharply and bluntly. The peritoneal incision was then extended superiorly and inferiorly with good visualization of the bladder. The bladder blade was inserted and the vesicouterine peritoneum identified grasped with Moroccan pickups and entered sharply with the Metzenbaum scissors. This incision was then extended laterally with the Metzenbaum scissors and a bladder flap created digitally. The bladder blade was then reinserted and the lower uterine segment incised in a transverse fashion with the scalpel. The uterine incision was then extended bluntly and with the bandage scissors. The bladder blade was removed and the 's head was delivered from cephalic presentation, atraumatically. The cord was doubly clamped and cut. The was handed off to waiting community fundraiser. The placenta was then delivered manually and the uterus exteriorized and cleared of all clots and debris. The uterine incision was then repaired with 0 Vicryl in a running locked fashion. 0-Chromic was used to obtain hemostasis via imbrication of the initial layer. The bladder flap was then repaired with 3-0 Vicryl in a running fashion. The uterus was returned to the patient's abdomen and Interceed was placed overlying the uterine incision, as well as a piece placed vertically on the anterior surface of the uterus, to prevent adhesions. The gutters were cleared of all clots and debris. The peritoneum was then closed in a running fashion with 2-0 Vicryl. All operative sites were noted to be hemostatic. The fascia was reapproximated with 0 Vicryl in a running fashion from each lateral edge to the midline. The subcutaneous fat layer was then closed in an interrupted fashion with 3-0 vicryl. The skin was closed with 4-0 Monocryl in a running, subcuticular fashion. The patient tolerated the procedure well. Sponge, lap, needle and instrument counts are correct x 2. 2 g of Ancef were given prior to skin incision. The patient was taken to the recovery area awake and in stable condition.
[2019-04-28 22:01] LABS: URINE AMPHETAMINES SCREEN NEGATIVE; URINE BARBITURATES SCREEN NEGATIVE; URINE BENZODIAZEPINES SCREEN NEGATIVE; URINE COCAINE SCREEN NEGATIVE; URINE MARIJUANA (THC) SCREEN NEGATIVE; URINE METHADONE SCREEN NEGATIVE; URINE PHENCYCLIDINE SCREEN NEGATIVE
--- NOTE | 2019-04-28 22:43 | Delivery Summary ---
Del Sum A-C Datetime Report Generated by CPN: 04/28/2019 22:43 DELIVERY PERSONNEL DELIVERY PERSONNEL: [id number] Delivery Doctor:: Lelia Arias MD Anesthesiologist:: Beck Meeks MD ACQUISITIONS ASSISTANT:: Farhana Glass CRNA Labor and Delivery Nurse:: Liana Montalvo RN Car Salesman:: Liana Montalvo RN Neonatal Nurse Practitioner:: AZEEM Barr Nursery Nurse:: Promise Maldonado RN Asphalt Machine Operator/JUMPBASTING FACING BASTER: ST Ab Asphalt Machine Operator/JUMPBASTING FACING BASTER: Sharmila Figueroa, ST MATERNAL INFORMATION Delivery Anesthesia: Epidural; General Medications After Delivery: Pitocin Drip 20 Units/1000ml NSS Delivery QBL: 1590 Maternal Complications: Other Complication Details: possible HSV, culture pending LABOR SUMMARY EDC: 04/24/2019 00:00 No. Babies in Womb: 1 Attempted: No LABOR INFORMATION Onset of Labor: 04/28/2019 19:00 Oxytocin: N/A Group B Beta Strep: positive Antibiotics # of Doses: 1 Name of Antibiotic Given: PCN Steroids Given: None Reason Steroids Not Administered: Not Applicable MEMBRANES Membranes Rupture Method: Spontaneous Amniotic Fluid Color: Clear Amniotic Fluid Amount: Moderate Amniotic Fluid Odor: Normal STAGES OF LABOR Stage 3 hr: 0 Stage 3 min: 1 Total Time in Labor hr: 1 Total Time in Labor min: 43 VAGINAL DELIVERY Episiotomy: None Laceration #1: None Laceration Extension #1: N/A Sponge Count Correct: N/A Sharps Count Correct: N/A CSECTION DELIVERY Primary Indication: Active Genital Herpes Secondary Indication: N/A CSection Urgency: Non-Scheduled CSection Incidence: Primary Labor: Labor Elective: Nonelective CSection Incision: Lower Uterine Transverse BABY A INFORMATION Infant Delivery Date/Time: 04/28/2019 20:42 Method of Delivery: Born in Route : No : N/A Forceps: N/A Vacuum Extraction: N/A Shoulder Dystocia : No PRESENTATION/POSITION BABY A Presentation: Cephalic Cephalic Presentation: Vertex Breech Presentation: N/A PLACENTA INFORMATION BABY A Placenta Delivery Time : 04/28/2019 20:43 Placenta Method of Delivery: Manual Removal Placenta Status: Delivered SCORES BABY A Heart Rate 1 min: >100 bpm Resp Effort 1 min: Good Cry Reflex Irritability 1 min: Cough or Sneeze or Pulls Away Muscle Tone 1 min: Active Motion Color 1 min: Body Larke, Extremities Blue SCORE 1 MIN: 9 Heart Rate 5 min: >100 bpm Resp Effort 5 min: Good Cry Reflex Irritability 5 min: Cough or Sneeze or Pulls Away Muscle Tone 5 min: Active Motion Color 5 min: Body Larke, Extremities Blue SCORE 5 MIN: 9 INFORMATION BABY A Gestational Age at Delivery: 40.4 Gestational Status: Full Term- 39- 40.6 Weeks Outcome : Liveborn Infant Condition : Stable Infant Sex: Male IDENTIFICATION BABY A Infant Verification Date/Time: 04/28/2019 20:51 ID Band Number: [id number] Mother's Name Verified: Yes Infant RN Verifying Infant: Chago Montalvo RN/ SBenjamin Maldonado RN WEIGHT/LENGTH BABY A Birthweight (gm): 3865 Infant Weight (lb): 8 Infant Weight (oz): 8 Length (in): 22.00 Length (cm): 55.88 CORD INFORMATION BABY A No. Cord Vessels: 3 Nuchal Cord : N/A Cord Blood Taken: Yes-For Eval (Mom's Blood Type - or O+) Suction: Mouth; Nose ASSESSMENT BABY A Skin to Skin: No BABY B INFORMATION : N/A
[2019-04-28] MEDS ORDERED: MORPHINE SULFATE 10 MG/ML INJ ONE (22:50)
[2019-04-28] MEDS ORDERED: MEPERIDINE HCL/PF INJ 25 MG/1 ML DISP.SYRIN ONE (22:50)
[2019-04-29] MEDS: HYDROMORPHONE HCL INJ/PF 2 MG/ML AMPULE IV PRN ×2 (00:31→06:17)
[2019-04-29] MEDS: KETOROLAC TROMETHAMINE INJ/PF 30 MG/1 ML SDV IV SCH ×2 (05:03→15:46)
[2019-04-29] MEDS: OXYCODONE-ACETAMINOPHEN 5-325 MG TABLET PO PRN ×3 (05:03→14:11)
[2019-04-29] MEDS: SIMETHICONE 80 MG TAB.CHEW PO PRN ×2 (05:44→15:52)
[2019-04-29 07:07] LABS: HEMATOCRIT 22.9 % (36.0-47.0); MEAN CORPUSCULAR HEMOGLOBIN 31.3 pg (27.0-33.4); MEAN CORPUSCULAR HGB CONC 35.1 g/dL (32.0-36.0); MEAN CORPUSCULAR VOLUME 89 fl (80-97); PLATELET COUNT 176 10^3/uL (150-450); RED BLOOD COUNT 2.57 10^6/uL (3.72-5.28); RED CELL DISTRIBUTION WIDTH 13.5 % (11.5-14.0); WHITE BLOOD COUNT 17.1 10^3/uL (4.0-10.5)
[2019-04-29] MEDS: DOCUSATE SODIUM 100 MG CAPSULE PO SCH ×2 (09:59→18:33)
[2019-04-29] MEDS ORDERED: PRENATAL VITAMIN W DHA CAPSULE PO SCH (10:00)
--- NOTE | 2019-04-29 11:01 | PDOC PROGRESS REPORT ---
Subjective-OB Progress Note for:: 04/29/19 Physical Exam (OB) Vital Signs: Temp Pulse Resp BP Pulse Ox 98.6 F 93 16 115/61 97 04/29/19 07:40 04/29/19 07:40 04/29/19 07:40 04/29/19 07:40 04/29/19 07:40 Intake & Output 04/28/19 04/29/19 04/30/19 06:59 06:59 06:59 Output Total 800 Balance -800 - PIH/Pre-Eclampsia Clonus: Negative Headache: Absent Epigastric Pain: No Visual Changes: No - Lochia Lochia Amount: Small 10-25 ml Lochia Color: Rubra/Red - Abdomen Description: Tender, Soft Hernia Present: No Bowel Sounds: Normoactive Flatus Presence: Present Stool: No Fundal Description: Firm, Midline Fundal Height: u/u - u/2 Objective-Diagnostic Laboratory: 04/29/19 06:19 04/28/19 04/28/19 04/28/19 19:25 20:12 20:12 WBC 14.8 H RBC 4.07 Hgb 12.5 Hct 36.6 MCV 90 MCH 30.6 MCHC 34.1 RDW 13.7 Plt Count 224 Seg Neutrophils % 77.5 Urine Color STRAW Urine Appearance CLEAR Urine pH 8.0 Ur Specific [place] 1.005 Urine Protein NEGATIVE Urine Glucose (UA) NEGATIVE Urine Ketones NEGATIVE Urine Blood MODERATE H Urine Nitrite NEGATIVE Ur Leukocyte Esterase NEGATIVE Blood Type O POSITIVE Antibody Screen NEGATIVE 04/29/19 06:19 WBC 17.1 H RBC 2.57 L Hgb 8.0 L D Hct 22.9 L MCV 89 MCH 31.3 MCHC 35.1 RDW 13.5 Plt Count 176 Seg Neutrophils % Urine Color Urine Appearance Urine pH Ur Specific [place] Urine Protein Urine Glucose (UA) Urine Ketones Urine Blood Urine Nitrite Ur Leukocyte Esterase Blood Type Antibody Screen
[2019-04-29] MEDS ORDERED: NORMAL SALINE 250 ML IV PRN (17:03)
[2019-04-29] MEDS: IBUPROFEN 800 MG TABLET PO SCH (18:33)
[2019-04-30] MEDS: IBUPROFEN 800 MG TABLET PO SCH ×2 (00:15→08:13)
[2019-04-30 06:54] LABS: HEMATOCRIT 22.1 % (36.0-47.0); MEAN CORPUSCULAR HEMOGLOBIN 28.8 pg (27.0-33.4); MEAN CORPUSCULAR HGB CONC 34.2 g/dL (32.0-36.0); PLATELET COUNT 134 10^3/uL (150-450); RED BLOOD COUNT 2.63 10^6/uL (3.72-5.28); RED CELL DISTRIBUTION WIDTH 16.4 % (11.5-14.0); WHITE BLOOD COUNT 14.6 10^3/uL (4.0-10.5)
[2019-04-30 07:00] LABS: MEAN CORPUSCULAR VOLUME 84 fl (80-97)
[2019-04-30 07:01] LABS: HEMOGLOBIN 7.6 g/dL (12.0-15.5)
--- NOTE | 2019-04-30 10:09 | PDOC PROGRESS REPORT ---
Subjective-OB Progress Note for:: 04/30/19 Subjective: Getting back in bed after going to [facility], states she felt shaky, pain abd area, hsb in room, waiting to go to CT scan Physical Exam (OB) Vital Signs: Temp Pulse Resp BP Pulse Ox 98.1 F 93 16 131/67 H 97 04/30/19 07:57 04/30/19 07:57 04/30/19 02:10 04/30/19 07:57 04/30/19 07:57 Intake & Output 04/29/19 04/30/19 05/01/19 06:59 06:59 06:59 Intake Total 1000 Output Total 800 800 Balance -800 200 - PIH/Pre-Eclampsia Clonus: Negative Headache: Absent Epigastric Pain: No Visual Changes: No - Dressing Removed: No Incision: Dressing Closure Type: [place] site - Lochia Lochia Amount: Scant < 10 ml Lochia Color: Rubra/Red - Abdomen Description: Tender, Firm Hernia Present: No Fundal Description: Firm, Midline Fundal Height: u/u - u/2 Objective-Diagnostic Laboratory: 04/30/19 06:39 04/28/19 04/30/19 20:12 06:39 WBC 14.6 H RBC 2.63 L Hgb 7.6 L Hct 22.1 L MCV 84 D MCH 28.8 MCHC 34.2 RDW 16.4 H Plt Count 134 L Blood Type O POSITIVE Antibody Screen NEGATIVE Assessment and Plan(PN) - Assessment and Plan (1) Transfusion of blood during current hospitalisation Is this a current diagnosis for this admission?: Yes (2) Acute blood loss anemia Is this a current diagnosis for this admission?: Yes (3) Delivery by elective caesarean section Is this a current diagnosis for this admission?: Yes (5) Positive GBS test Is this a current diagnosis for this admission?: Yes - Time Spent with Patient Time with patient: Less than 15 minutes Medications reviewed and adjusted accordingly: Yes - Disposition Anticipated Discharge: Home Within: within 24 hours
--- NOTE | 2019-04-30 11:15 | RADIOLOGY REPORT (SQ) ---
EXAM DESCRIPTION: CT ABD/PELVIS WITH IV ONLY COMPLETED DATE/TIME: 04/30/2019 10:25 am REASON FOR STUDY: low Hb/Hct, no response with transfusion, c/s COMPARISON: Abdominal ultrasound 08/25/2018, 05/05/2012 TECHNIQUE: CT scan of the abdomen and pelvis performed using helical scanning technique with dynamic intravenous contrast injection. No oral contrast. Images reviewed with lung, soft tissue, and bone windows. Reconstructed coronal and sagittal MPR images reviewed. Delayed images for evaluation of the urinary system also acquired. All images stored on PACS. All CT scanners at this facility use dose modulation, iterative reconstruction, and/or weight based d osing when appropriate to reduce radiation dose to as low as reasonably achievable (ALARA). [facility]: Dose Right [facility]: CareDose [facility]: Dose Right [facility]: Teradose 4D [facility]: Placecast CONTRAST TYPE AND DOSE: contrast/concentration: Isovue 350.00 mg/ml; Total Contrast Delivered: 100.0 ml; Total Saline Delivered: 72.0 ml RENAL FUNCTION: None required. The patient is less than 50 years old. RADIATION DOSE: CT Rad equipment meets quality standard of care and radiation dose reduction techniq ues were employed. CTDIvol: 14.8 - 16.6 mGy. DLP: 1818 mGy-cm.. LIMITATIONS: None. FINDINGS: The patient is post stat section with continued low hemoglobin and hematocrit pos t transfusion. On axial images 71 through 75, coronal images 44-53, and sagittal image 45, there is a 3 x 2.3 x 2 cm focus of avid arterial enhancement along the leftward lower uterine segment along the secti on defect. This is worrisome for active extravasation. Findings were discussed with doctor Dian genao, 1030 hours 04/30/2019. There is extensive hemorrhage in the left adnexa and pre he vesicle space, extending into the inferio r aspect of the right and left rectus muscle sheath. On the left side, a rectus muscle hematoma is p resent 9 cm craniocaudad by 5 cm AP x 7 cm transverse. LOWER CHEST: Trace bilateral pleural effusions. LIVER: Normal size. No masses. No dilated ducts. SPLEEN: Normal size. No focal lesions. PANCREAS: No masses. No significant calcifications. No adjacent inflammation or peripancreatic fluid collections. Pancreatic duct not dilated. GALLBLADDER: Sludge in the gallbladder ADRENAL GLANDS: No significant masses or asymmetry. RIGHT KIDNEY AND URETER: No solid masses. No significant calcifications. No hydronephrosis or hyd roureter. LEFT KIDNEY AND URETER: No solid masses. 3 mm left lower pole intrarenal nonobstructive stone No hydronephrosis or hydroureter. AORTA AND VESSELS: No aneurysm. No dissection. Renal arteries, SMA, celiac without stenosis. RETROPERITONEUM: No retroperitoneal adenopathy, hemorrhage or masses. BOWEL AND PERITONEAL CAVITY: No masses or inflammatory changes. No free fluid or peritoneal masses. APPENDIX: Normal. PELVIS: As above. Post uterus with low anterior uterine section defect. Active extr avasation seen as arterial enhancement on coronal images 45-53 in the left adnexa. Moderate extra ut erine extraperitoneal pelvic hemorrhage extending into the prevesical space and right and left rectus muscle sheaths. BONES: No significant or acute findings. OTHER: No other significant finding. IMPRESSION: Post uterus with low anterior uterine section defect. Active extravasat ion seen as arterial enhancement on coronal images 45-53 in the left adnexa. Moderate extra uterine extraperitoneal pelvic hemorrhage extending into the prevesical space and right and left rectus muscl e sheaths. COMMENT: Pertinent findings on the imaging study reported as a CRITICAL RESULT to MAAME GONZALES MD and SHANIQUA KELLY MD [id number] hours on 04/30/2019. Category of Critical Result: Active bleeding seen on CT exam TECHNICAL DOCUMENTATION: JOB ID: [id number] Quality ID # [id number]: Final reports with documentation of one or more dose reduction techniques (e.g., Au tomated exposure control, adjustment of the mA and/or kV according to patient size, use of iterative reconstruction technique) 2010 [employer]- All Rights Reserved Reading location - IP/workstation name: [email or web address]
[2019-04-30 11:39] LABS: ABSOLUTE EOSINOPHILS # (AUTO) 0.1 10^3/uL (0.0-0.6); ABSOLUTE LYMPHOCYTES (AUTO) 1.3 10^3/uL (0.5-4.7); ABSOLUTE MONOCYTES (AUTO) 0.9 10^3/uL (0.1-1.4); ABSOLUTE NEUT (AUTO) 14.7 10^3/uL (1.7-8.2); BASOPHILS % (AUTO) 0.1 % (0-2); EOSINOPHILS % (AUTO) 0.7 % (0-6); HEMATOCRIT 22.6 % (36.0-47.0); LYMPHOCYTES % (AUTO) 7.6 % (13-45); MEAN CORPUSCULAR HEMOGLOBIN 28.4 pg (27.0-33.4); MEAN CORPUSCULAR HGB CONC 33.6 g/dL (32.0-36.0); MEAN CORPUSCULAR VOLUME 85 fl (80-97); MONOCYTES % (AUTO) 5.4 % (3-13); PLATELET COUNT 150 10^3/uL (150-450); RED BLOOD COUNT 2.67 10^6/uL (3.72-5.28); RED CELL DISTRIBUTION WIDTH 16.3 % (11.5-14.0); SEGMENTED NEUTROPHILS % (AUTO) 86.2 % (42-78); TOTAL CELLS COUNTED % (AUTO) 100 %; WHITE BLOOD COUNT 17.1 10^3/uL (4.0-10.5)
[2019-04-30 11:43] LABS: HEMOGLOBIN 7.6 g/dL (12.0-15.5)
[2019-04-30 11:56] VITALS: BP 133/72
--- NOTE | 2019-04-30 12:11 | PDOC PROGRESS REPORT ---
Subjective-OB Progress Note for:: 04/30/19 Physical Exam (OB) Vital Signs: Temp Pulse Resp BP Pulse Ox 98.1 F 106 H 14 133/72 H 95 04/30/19 10:59 04/30/19 10:59 04/30/19 10:59 04/30/19 10:59 04/30/19 10:59 Intake & Output 04/29/19 04/30/19 05/01/19 06:59 06:59 06:59 Intake Total 1000 Output Total 800 800 Balance -800 200 - PIH/Pre-Eclampsia Clonus: Negative Headache: Absent Epigastric Pain: No Visual Changes: No - Dressing Removed: No Incision: Dressing Closure Type: [place] site - Lochia Lochia Amount: Scant < 10 ml Lochia Color: Rubra/Red - Abdomen Description: Tender, Firm Hernia Present: No Fundal Description: Firm, Midline Fundal Height: u/u - u/2 Objective-Diagnostic Laboratory: 04/30/19 11:15 04/28/19 04/30/19 04/30/19 20:12 06:39 11:15 WBC 14.6 H 17.1 H RBC 2.63 L 2.67 L Hgb 7.6 L 7.6 L Hct 22.1 L 22.6 L MCV 84 D 85 MCH 28.8 28.4 MCHC 34.2 33.6 RDW 16.4 H 16.3 H Plt Count 134 L 150 Seg Neutrophils % 86.2 H Blood Type O POSITIVE Antibody Screen NEGATIVE Assessment and Plan(PN) - Assessment and Plan (1) Transfusion of blood during current hospitalisation Is this a current diagnosis for this admission?: Yes (2) Acute blood loss anemia Is this a current diagnosis for this admission?: Yes (3) Delivery by elective caesarean section Is this a current diagnosis for this admission?: Yes (5) Positive GBS test Is this a current diagnosis for this admission?: Yes - Time Spent with Patient Time with patient: 15-25 minutes Medications reviewed and adjusted accordingly: Yes - Disposition Anticipated Discharge: Home Within: within 24 hours - patient told that PCR for HSV was positive and she did have herpes and will start Acyclovir. Dr. Flood making arrangement for patient to be transferred to [facility] secondary to results of CT scan. Patient aware she will go to [facility] and Dr. Flood will come and talk with them when we have the time. [facility] Manager at [facility] and they said they understand. Dr. Boateng at talking about baby and the plan with baby
--- NOTE | 2019-04-30 12:51 | PDOC TRANSFER SUMMARY ---
General Admission Date/PCP: 04/28/19 19:42 PRESTON HERNANDEZ CNM Admission Date: 04/28/19 Transfer Date: 04/30/19 Accepting Facility: [facility] [place] Resuscitation Status: Full Code - Transfer Diagnosis (1) Rectus sheath hematoma Is this a current diagnosis for this admission?: Yes (2) Pseudoaneurysm following procedure Is this a current diagnosis for this admission?: Yes (3) Transfusion of blood during current hospitalisation Is this a current diagnosis for this admission?: Yes (4) Acute blood loss anemia Is this a current diagnosis for this admission?: Yes (5) Delivery by elective caesarean section Is this a current diagnosis for this admission?: Yes (6) Maternal active HSV, delivered, current hospitalization Is this a current diagnosis for this admission?: Yes (7) Positive GBS test Is this a current diagnosis for this admission?: Yes - Transfer Medications Home Medications: Acyclovir [Acyclovir 400 mg Tablet] 400 mg PO DAILY 04/27/19 Pnv No.121/Iron/Folic Acid [ Multivitamin Tablet] 1 each PO DAILY 04/27/19 Transfer Medications: Current Medications Acetaminophen (Tylenol 325 Mg Tablet) 650 mg PO Q4HP PRN PRN Reason: fever greater than 101 F Stop: 05/28/19 21:38 Acyclovir (Zovirax 200 Mg Capsule) 400 mg PO NOW ONE Stop: 04/30/19 12:06 Diphtheria/Tetanus/Acell Pertussis (Boostrix Vaccine 0.5 Ml Syringe) 0.5 ml IM .DISCHARGE PRN PRN Reason: IF NOT PREVIOUSLY VACCINATED Stop: 05/28/19 21:38 Docusate Sodium (Colace 100 Mg Capsule) 100 mg PO BID MARY Stop: 05/29/19 09:59 Last Admin: 04/29/19 18:33 Dose: 100 mg Documented by: Hydromorphone HCl (Dilaudid Inj/Pf 2 Mg/Ml Ampule) 2 mg IV Q3HP PRN PRN Reason: FOR PAIN SCALE 4-5 Stop: 05/05/19 21:38 Last Admin: 04/29/19 06:17 Dose: 2 mg Documented by: Sodium Chloride (Nacl 0.9% 250 Ml Iv Soln) 250 mls @ 0 mls/hr IV CONTINUOUS PRN PRN Reason: AFTER EACH UNIT Stop: 04/30/19 17:02 Ibuprofen (Motrin 800 Mg Tablet) 800 mg PO Q6 MARY Stop: 05/29/19 17:59 Last Admin: 04/30/19 08:13 Dose: 800 mg Documented by: Oxycodone/Acetaminophen (Percocet 5-325 Mg Tablet) 1 tab PO Q4HP PRN PRN Reason: FOR PAIN SCALE 1-2 Stop: 05/05/19 21:38 Oxycodone/Acetaminophen (Percocet 5-325 Mg Tablet) 2 tab PO Q4HP PRN PRN Reason: FOR PAIN SCALE 3-5 Stop: 05/05/19 21:38 Last Admin: 04/29/19 14:11 Dose: 2 tab Documented by: Vit/Iron/Folic Acid/DHA ( Multi + Dha Capsule) 1 cap PO DAILY MARY Stop: 05/29/19 09:59 Last Admin: 04/29/19 09:59 Dose: 1 cap Documented by: Promethazine HCl (Phenergan Inj 25 Mg/1 Ml Vial) 25 mg IV Q6HP PRN PRN Reason: nausea and vomiting Stop: 05/28/19 21:38 Simethicone (Mylicon 80 Mg Chewable Tablet) 80 mg PO QIDP PRN PRN Reason: FOR GAS (FLATULENCE) Stop: 05/28/19 21:38 Last Admin: 04/29/19 15:52 Dose: 80 mg Documented by: - Allergies Allergies/Adverse Reactions: No Known Allergies Allergy (Verified 04/27/19 18:13) Hospital Course Hospital Course: 33 yo admitted for deliver in active labor. She had new onset of HSV outbreak two days prior with current lesions noted. Due to HSV, Primary Delivery was done. Delivery complicated by extension of uterine incision on left but hemostasis obtained prior to leaving OR.Quantitiative EBL was 1,9000 cc. Hemaglobin dropped from 12 pre-operatively to 8 post-op day 1. She had stable vital signs but some central lower abdominal pain and dizziness with ambulation on POD #1 and was given 2 Units PRBCs. Repeat Hemaglobin this AM on POD #2 was 7.6 . Because of this drop in hemaglobin after 2 units PRBC the evening prior a CT scan was ordered. CT showed stable rectus sheath hematoma and a pseudoaneurysm on the left lower uterine segement-active bleeding difficult to rule out. Interventional radiology consult recommended for possible intervention. IR not available and transport arranged to [facility]. Repeat Hg stable at 7.[address] Garcia at [facility] Physical Exam Vital Signs: Temp Pulse Resp BP Pulse Ox 98.1 F 106 H 14 133/72 H 95 04/30/19 10:59 04/30/19 10:59 04/30/19 10:59 04/30/19 10:59 04/30/19 10:59 Intake & Output 04/29/19 04/30/19 05/01/19 06:59 06:59 06:59 Intake Total 1000 Output Total 800 800 Balance -800 200 General appearance: PRESENT: no acute distress, cooperative Respiratory exam: PRESENT: clear to auscultation rhett Cardiovascular exam: PRESENT: RRR, +S1, +S2 Pulses: PRESENT: +2 pedal pulses bilateral Vascular exam: PRESENT: normal capillary refill GI/Abdominal exam: PRESENT: normal bowel sounds, soft, tenderness - lower centra l abdominal tenderness with palpation. No rebound or guarding. Incision dry and intact Neurological exam: PRESENT: alert, awake, oriented to person, oriented to place, oriented to time Psychiatric exam: PRESENT: normal mood Skin exam: PRESENT: normal color, warm Results Laboratory Results: 04/30/19 11:15 04/28/19 04/30/19 04/30/19 20:12 06:39 11:15 WBC 14.6 H 17.1 H RBC 2.63 L 2.67 L Hgb 7.6 L 7.6 L Hct 22.1 L 22.6 L MCV 84 D 85 MCH 28.8 28.4 MCHC 34.2 33.6 RDW 16.4 H 16.3 H Plt Count 134 L 150 Seg Neutrophils % 86.2 H Blood Type O POSITIVE Antibody Screen NEGATIVE Impressions: Abdomen/Pelvis CT 04/30/19 08:04 IMPRESSION: Post uterus with low anterior uterine section def ect. Active extravasation seen as arterial enhancement on coronal images 45-53 in the left adnexa. Moderate extra uterine extraperitoneal pelvic hemorrhage extending into the prevesical space and right and left rectus muscle sheaths. Status: Imported from PACS Plan Discharge Plan: 33 yo admitted for deliver in active labor. She had new onset of HSV outbreak two days prior with current lesions noted. Due to HSV, Primary Delivery was done. Delivery complicated by extension of uterine incision on left but hemostasis obtained prior to leaving OR.Quantitiative EBL was 1,9000 cc. Hemaglobin dropped from 12 pre-operatively to 8 post-op day 1. She had stable vital signs but some central lower abdominal pain and dizziness with ambulation on POD #1 and was given 2 Units PRBCs. Repeat Hemaglobin this AM on POD #2 was 7.6 . Because of this drop in hemaglobin after 2 units PRBC the evening prior a CT scan was ordered. CT showed stable rectus sheath hematoma and a pseudoaneurysm on the left lower uterine segement-active bleeding difficult to rule out. Interventional radiology consult recommended for possible intervention. IR not available and transport arranged to [facility]. Repeat Hg stable at 7.[address] Garcia at [facility]
[2019-04-30] MEDS ORDERED: ACYCLOVIR 200 MG CAPSULE PO ONE (13:00)
== END 2019-04-30 13:35 | disposition short-term general hospital (02) | DRG 786 ==
LOC: LC 19:19 → LR 19:42 → 2N 23:23
PROVIDERS: ADMIT Obstetrics & Gynecology; ATTEND Obstetrics & Gynecology
PROC: 10D00Z1 Extraction of Products of Conception, Low, Open Approach (ICD-10-PCS; principal; 2019-04-28)
PROC: 30233N1 Transfusion of Nonautologous Red Blood Cells into Peripheral Vein, Percutaneous Approach (ICD-10-PCS; 2019-04-29)
DX: O98.32 Other infections with a predominantly sexual mode of transmission complicating childbirth (principal); O99.42 Diseases of the circulatory system complicating childbirth; D62 Acute posthemorrhagic anemia; O90.2 Hematoma of obstetric wound; O99.02 Anemia complicating childbirth; I72.8 Aneurysm of other specified arteries; A60.04 Herpesviral vulvovaginitis; O99.824 Streptococcus B carrier state complicating childbirth; Z3A.40 40 weeks gestation of pregnancy; Z37.0 Single live birth
CPT/HCPCS: 1961; 36415; 36430; 74177; 80307; 81005; 85025; 85027; 86592; 86850; 86900; 86901; 86920; 94799; J0131; J0690; J1170; J1885; J2175; J2210; J2250; J2270; J2405; J2540; J2590; J2704; J3010; J3490; P9016

== ENCOUNTER 2019-05-07 16:23 | Emergency (ER) | payer SELFPAY ==
[2019-05-07] MEDS ORDERED: ACETAMINOPHEN 325 MG TABLET PO ONE ×2 (18:02→18:25)
[2019-05-07] MEDS ORDERED: NORMAL SALINE IV ONE (18:36)
[2019-05-07 18:52] LABS: HEMATOCRIT 25.5 % (36.0-47.0); HEMOGLOBIN 8.4 g/dL (12.0-15.5); MEAN CORPUSCULAR HEMOGLOBIN 28.1 pg (27.0-33.4); MEAN CORPUSCULAR HGB CONC 32.8 g/dL (32.0-36.0); MEAN CORPUSCULAR VOLUME 86 fl (80-97); PLATELET COUNT 643 10^3/uL (150-450); RED BLOOD COUNT 2.98 10^6/uL (3.72-5.28)
[2019-05-07 18:58] LABS: INTERNATIONAL RATION (INR) 1.04; PROTHROMBIN TIME 13.6 SEC (11.4-15.4)
[2019-05-07 19:07] LABS: APPEARANCE,URINE SLIGHTLY-CLOUDY; BILIRUBIN,URINE NEGATIVE (NEGATIVE); COLOR,URINE YELLOW; GLUCOSE, URINE NEGATIVE (NEGATIVE); KETONES,URINE NEGATIVE (NEGATIVE); LEUKOCYTE ESTERASE,URINE LARGE (NEGATIVE); NITRITE,URINE NEGATIVE (NEGATIVE); PROTEIN,URINE 30 mg/dL (NEGATIVE); URINE SPECIFIC GRAVITY 1.012
[2019-05-07] MEDS ORDERED: CEFEPIME 2 GM/D5W RTU 2 GM/50 ML RTUPB IV ONE (19:11)
[2019-05-07 19:12] LABS: ABSOLUTE LYMPHOCYTES# (MANUAL) 1.7 10^3/uL (0.5-4.7); ABSOLUTE MONOCYTES # (MANUAL) 0.2 10^3/uL (0.1-1.4); BAND NEUTROPHILS % (MANUAL) 2 % (3-5); BASOPHILS % (MANUAL) 0 % (0-2); EOSINOPHILS % (MANUAL) 2 % (0-6); LYMPHOCYTES % (MANUAL) 7 % (13-45); MONOCYTES % (MANUAL) 1 % (3-13); SEGMENTED NEUTROPHILS % (MAN) 88 % (42-78); TOTAL CELLS COUNTED 100
[2019-05-07] MEDS ORDERED: VANCOMYCIN HCL INJ 1000 MG VIAL IV ONE (19:12)
[2019-05-07] MEDS ORDERED: LEVOFLOXACIN 750 MG/D5W RTU 750 MG/150 ML RTUPB IV ONE ×2 (19:12→23:30)
[2019-05-07] MEDS ORDERED: ONDANSETRON HCL INJ/PF 4 MG/2 ML SDV IV ONE (19:12)
[2019-05-07] MEDS ORDERED: FENTANYL CITRATE INJ/PF 100 MCG/2 ML AMPUL IV ONE (19:12)
--- NOTE | 2019-05-07 19:12 | RADIOLOGY REPORT (SQ) ---
EXAM DESCRIPTION: CHEST SINGLE VIEW COMPLETED DATE/TIME: 05/07/2019 6:55 pm REASON FOR STUDY: recent surgery COMPARISON: None. EXAM PARAMETERS: NUMBER OF VIEWS: One view. TECHNIQUE: Single frontal radiographic view of the chest acquired. RADIATION DOSE: NA LIMITATIONS: None. FINDINGS: LUNGS AND PLEURA: No opacities, masses or pneumothorax. No pleural effusion. MEDIASTINUM AND HILAR STRUCTURES: No masses. Contour normal. HEART AND VASCULAR STRUCTURES: Mild cardiomegaly BONES: No acute findings. HARDWARE: None in the chest. OTHER: No other significant finding. IMPRESSION: NO ACUTE RADIOGRAPHIC FINDING IN THE CHEST. TECHNICAL DOCUMENTATION: JOB ID: [id number] [employer]- All Rights Reserved Reading location - IP/workstation name: [email or web address]
[2019-05-07 19:15] LABS: ANISOCYTOSIS 1+; PLATELET CLUMPS PRESENT; PLATELET COMMENT INCREASED; PLATELET GIANT PRESENT; POIKILOCYTOSIS SLIGHT; POLYCHROMASIA SLIGHT; TEAR DROP CELLS SLIGHT
[2019-05-07 19:19] LABS: VENOUS BLOOD BASE EXCESS -2.6 mmol/L; VENOUS BLOOD HCO3 20.3 mmol/L (20-32); VENOUS BLOOD PH 7.45 (7.30-7.42)
[2019-05-07 19:21] LABS: ALBUMIN 3.1 g/dL (3.5-5.0); ALKALINE PHOSPHATASE 136 U/L (38-126); ANION GAP 10 (5-19); ASPARTATE AMINO TRANSFERASE 38 U/L (14-36); BILIRUBIN,DIRECT 0.1 mg/dL (0.0-0.4); BILIRUBIN,TOTAL 0.9 mg/dL (0.2-1.3); BLOOD UREA NITROGEN 13 mg/dL (7-20); CALCIUM 9.2 mg/dL (8.4-10.2); CARBON DIOXIDE 24 mmol/L (22-30); CHLORIDE 101 mmol/L (98-107); GLUCOSE 86 mg/dL (75-110); POTASSIUM 4.6 mmol/L (3.6-5.0); TOTAL PROTEIN 6.3 g/dL (6.3-8.2)
--- NOTE | 2019-05-07 20:03 | RADIOLOGY REPORT (SQ) ---
EXAM DESCRIPTION: CT ABD/PELVIS WITH IV ONLY COMPLETED DATE/TIME: 05/07/2019 7:46 pm REASON FOR STUDY: pain, fever, s/p c/s COMPARISON: CT abdomen pelvis 04/30/2019 TECHNIQUE: CT scan of the abdomen and pelvis performed using helical scanning technique with dynamic intravenous contrast injection. No oral contrast. Images reviewed with lung, soft tissue, and bone windows. Reconstructed coronal and sagittal MPR images reviewed. Delayed images for evaluation of the urinary system also acquired. All images stored on PACS. All CT scanners at this facility use dose modulation, iterative reconstruction, and/or weight based d osing when appropriate to reduce radiation dose to as low as reasonably achievable (ALARA). [facility]: Dose Right [facility]: CareDose [facility]: Dose Right [facility]: Teradose 4D [facility]: Siterra CONTRAST TYPE AND DOSE: contrast/concentration: Isovue 350.00 mg/ml; Total Contrast Delivered: 94.0 ml; Total Saline Delivered: 45.0 ml RENAL FUNCTION: None required. The patient is less than 50 years old. RADIATION DOSE: CT Rad equipment meets quality standard of care and radiation dose reduction techniq ues were employed. CTDIvol: NaN - NaN mGy. DLP: 0 mGy-cm.. LIMITATIONS: None. FINDINGS: Patient is post section with postoperative bleeding complications. There is a em bolization coil in the left lower quadrant along the inferior aspect of the left rectus muscle sheath on axial image 78. A peripheral rim enhancing fluid collection with tiny air bubble is present milton ng the inferior aspect of the rectus muscle sheath, 14 cm transverse by 4 cm AP by 9 cm craniocaudad , likely a hematoma. Superimposed infection could not be excluded. Deep to the rectus muscle sheath, there is a second hematoma between the bladder and rectus muscle me asuring about 6.5 cm transverse by 2 cm AP by 4 cm craniocaudad, best shown on axial image 69 and sag ittal image 49. There is a small amount of hematoma along the left adnexa region, measuring about 4 by 2.4 cm on axia l image 42. uterus measures about 13 by 9 by 6 cm in size. Ovaries not well seen. No posterior cul-d e-sacs fluid. No CT evidence of active arterial contrast extravasation on today's study in the pelvis. LOWER CHEST: No significant findings. No nodules or infiltrates. LIVER: Normal size. No masses. No dilated ducts. SPLEEN: Normal size. No focal lesions. PANCREAS: No masses. No significant calcifications. No adjacent inflammation or peripancreatic fluid collections. Pancreatic duct not dilated. GALLBLADDER: No identified stones by CT criteria. No inflammatory changes to suggest cholecystitis. ADRENAL GLANDS: No significant masses or asymmetry. RIGHT KIDNEY AND URETER: No solid masses. No significant calcifications. No hydronephrosis or hyd roureter. LEFT KIDNEY AND URETER: No solid masses. No significant calcifications. No hydronephrosis or hydr oureter. AORTA AND VESSELS: No aneurysm. No dissection. Renal arteries, SMA, celiac without stenosis. RETROPERITONEUM: No retroperitoneal adenopathy, hemorrhage or masses. BOWEL AND PERITONEAL CAVITY: No masses or inflammatory changes. No free fluid or peritoneal masses. APPENDIX: Normal. PELVIS: As above ABDOMINAL WALL: As above BONES: No significant or acute findings. OTHER: No other significant finding. IMPRESSION: Post section with bleeding complications, embolization coils are seen over the left lower quadrant along the posterior inferior edge of the left rectus muscle sheath. 14 x 9 x 4 cm fluid collection along the rectus muscle sheath with air bubble. This likely represent s a hematoma. Superimposed infection could not be excluded. 6.5 x 2 x 4 cm hematoma in the space of Retzius between the bladder and anterior abdominal wall 4 x 2.4 cm hematoma in the left adnexa COMMENT: Findings discussed with Dr. Hernández TECHNICAL DOCUMENTATION: JOB ID: [id number] Quality ID # [id number]: Final reports with documentation of one or more dose reduction techniques (e.g., Au tomated exposure control, adjustment of the mA and/or kV according to patient size, use of iterative reconstruction technique) 2010 [employer]- All Rights Reserved Reading location - IP/workstation name: [email or web address]
[2019-05-07] MEDS ORDERED: NORMAL SALINE 1000 ML 1,000 ML IV ONE (23:16)
--- NOTE | 2019-05-07 23:34 | ER Document Report ---
Entered by MATTHEW CELIS SCRIBE 05/07/191911 Acting as scribe for:DAVID SPIVEY DO ED GI/ - General Chief Complaint: Post Surgical Bleeding Stated Complaint: ABDOMINAL PAIN/BLEEDING CSECTION INCISION Time Seen by Provider: 05/07/19 18:35 Mode of Arrival: Ambulatory Information source: Patient Notes: Patient is a 34-year-old female who presents to the emergency department today with complaints of abdominal pain, bleeding from her scar, fever, and pain with urination. The patient had a here and was transferred to [facility] because of "internal bleeding" according to family. Patient states she hurts from her knees to her waist, stating it feels like bad cramping. Patient denies a cough. TRAVEL OUTSIDE OF THE [place] IN LAST 30 DAYS: No - Related Data Allergies/Adverse Reactions: No Known Allergies Allergy (Verified 04/27/19 18:13) Past Medical History - General Information source: Patient - Social History Smoking Status: Never Smoker Cigarette use (# per day): No Chew tobacco use (# tins/day): No Frequency of alcohol use: None Drug Abuse: None Lives with: Family Family History: Reviewed & Not Pertinent Patient has suicidal ideation: No Patient has homicidal ideation: No Surgical Hx: Negative - Immunizations Immunizations up to date: Yes Review of Systems - Review of Systems Constitutional: See HPI, Fever EENT: No symptoms reported Cardiovascular: No symptoms reported Respiratory: denies: Cough Gastrointestinal: See HPI, Abdominal pain Genitourinary: See HPI, Dysuria Female Genitourinary: No symptoms reported Musculoskeletal: No symptoms reported Skin: No symptoms reported Hematologic/Lymphatic: No symptoms reported Neurological/Psychological: No symptoms reported -: Yes All other systems reviewed and negative Physical Exam - Vital signs Vitals: Temp Pulse Resp BP Pulse Ox 99.9 F 118 H 20 151/81 H 94 05/07/19 16:33 05/07/19 16:33 05/07/19 16:33 05/07/19 16:33 05/07/19 16:33 Interpretation: Tachycardic, Febrile - General General appearance: Alert In distress: Mild - HEENT Head: Normocephalic Mucous membranes: Dry Pharynx: Normal Neck: Normal - Respiratory Respiratory status: No respiratory distress Chest status: Nontender Breath sounds: Normal - Cardiovascular Rhythm: Regular, Tachycardia - Abdominal Inspection: Fresh incision Tenderness: Tender, Guarding Notes: Patient with abdominal incision and bleeding from left aspect of incision. Tenderness to palpation of abdomen below the umbilicus. Left greater than right. No streaking erythema. Ecchymosis consistent with surgical history - Back Back: Normal, Nontender - Extremities General upper extremity: Normal inspection, Normal ROM General lower extremity: Normal inspection, Normal ROM, Other - Right leg warmer than left leg - Neurological Neuro grossly intact: Yes Cognition: Normal Orientation: AAOx4 [place] Coma Scale Eye Opening: Spontaneous [place] Coma Scale Verbal: Oriented [place] Coma Scale Motor: Obeys Commands [place] Coma Scale Total: 15 Speech: Normal Motor strength normal: LUE, RUE, LLE, RLE Sensory: Normal - Psychological Associated symptoms: Normal affect, Normal mood - Skin Skin Temperature: Hot Skin Moisture: Diaphoretic Course - Re-evaluation Re-evalutation: 05/07/19 19:19 Called [facility] for potential transfer 05/07/19 19:27 call center rn OB returned call. Says to get CT scan, possibly talk to OB here and then call him back. 05/07/19 19:52 Dr. Rodriguez called to give CT results 05/07/19 19:55 Called transfer center back with CT read. Pt accepted for transfer by Dr. Garcia 05/07/19 23:31 Patient is a 34-year-old female with recent section on 7 and complicated postsurgical course including pseudoaneurysm and rectus sheath hematoma, who comes in with fever to 101 and abdominal pain. Patient with a lot of bacteria in urine, but more concerningly what appears to be a possibly infected hematoma intra-abdominally. Patient given Tylenol for fever. She is not anemic to the point of transfusion at this time although she does seem hemoconcentrated. Patient has been fluid resuscitated at 30 mg/kg, has been kept n.p.o. and is on a normal saline drip. Tachycardia has been resolving with fluids. Patient has not been hypotensive. Lungs are clear. Given cefepime, vancomycin, and Levaquin for coverage of sepsis. Patient was discussed with the radiologist here and Dr. Garcia, [facility] in [place]. Patient will be transferred due to lack of interventional radiology at this facility that she will likely need for what appears to be an infected hematoma. Patient is agreeable to transfer. Stable at the time of transfer. - Vital Signs Vital signs: Temp Pulse Resp BP Pulse Ox 99.2 F 118 H 28 H 128/80 H 99 05/07/19 22:05 05/07/19 16:33 05/07/19 21:30 05/07/19 21:30 05/07/19 21:30 - Laboratory Result Diagrams: 05/07/19 18:13 05/07/19 18:13 Laboratory results interpreted by me: 05/07/19 05/07/19 05/07/19 18:13 18:13 18:13 WBC 24.0 H RBC 2.98 L Hgb 8.4 L Hct 25.5 L RDW 16.0 H Plt Count 643 H Seg Neuts % (Manual) 88 H Band Neutrophils % 2 L Lymphocytes % (Manual) 7 L Monocytes % (Manual) 1 L Abs Neuts (Manual) 21.6 H VBG pH VBG pCO2 Sodium 134.6 L Creatinine 0.46 L AST 38 H Alkaline Phosphatase 136 H Albumin 3.1 L Urine Protein 30 H Urine Blood LARGE H Urine Urobilinogen 2.0 H Ur Leukocyte Esterase LARGE H 05/07/19 19:06 WBC RBC Hgb Hct RDW Plt Count Seg Neuts % (Manual) Band Neutrophils % Lymphocytes % (Manual) Monocytes % (Manual) Abs Neuts (Manual) VBG pH 7.45 H VBG pCO2 30.0 L Sodium Creatinine AST Alkaline Phosphatase Albumin Urine Protein Urine Blood Urine Urobilinogen Ur Leukocyte Esterase Critical Care Note - Critical Care Note Total time excluding time spent on procedures (mins): 60 - Evaluation and management of febrile postoperative patient, multiple re-evaluations, discussion with radiology and accepting physician, coordination of transfer, counseling of patient and family Discharge - Discharge Clinical Impression: Postoperative infection Qualifiers: Encounter type: initial encounter Postoperative infection type: unspecified type Qualified Code(s): T81.40XA - Infection following a procedure, unspecified, initial encounter Rectus sheath hematoma Qualifiers: Encounter type: subsequent encounter Qualified Code(s): S30.1XXD - Contusion of abdominal wall, subsequent encounter Sepsis Qualifiers: Sepsis type: sepsis due to unspecified organism Sepsis acute organ dysfunction status: without acute organ dysfunction Qualified Code(s): A41.9 - Sepsis, unspecified organism Condition: Stable Disposition: [facility] I personally performed the services described in the documentation, reviewed and edited the documentation which was dictated to the scribe in my presence, and it accurately records my words and actions.
[2019-05-07 23:57] VITALS: BP 146/83
--- NOTE | 2019-05-08 19:18 | EKG REPORT ---
SEVERITY:- OTHERWISE NORMAL ECG - SINUS TACHYCARDIA : Confirmed by: Marcia Hernandez MD 08-May-2019 19:17:35
== END 2019-05-08 00:15 | disposition short-term general hospital (02) ==
LOC: ER 16:23
DX: T81.40XA Infection following a procedure, unspecified, initial encounter (principal); A41.9 Sepsis, unspecified organism; S30.1XXD Contusion of abdominal wall, subsequent encounter; O75.4 Other complications of obstetric surgery and procedures; R30.0 Dysuria; R50.9 Fever, unspecified; X58.XXXD Exposure to other specified factors, subsequent encounter
CPT/HCPCS: 93005; 86900; 86901; 36415; 87040; 87086; 86850; 85025; 85610; 80053; 81001; 82803; 83605; 71045; 74177; 93010; J3010; J2405; J7030; J3370; J1956; J0692

== ENCOUNTER 2019-05-28 02:45 | Emergency (ER) | payer SELFPAY ==
[2019-05-28 04:32] LABS: ABSOLUTE BASOPHILS # (AUTO) 0.1 10^3/uL (0.0-0.2); ABSOLUTE EOSINOPHILS # (AUTO) 0.2 10^3/uL (0.0-0.6); ABSOLUTE LYMPHOCYTES (AUTO) 0.9 10^3/uL (0.5-4.7); ABSOLUTE MONOCYTES (AUTO) 0.7 10^3/uL (0.1-1.4); ABSOLUTE NEUT (AUTO) 14.3 10^3/uL (1.7-8.2); BASOPHILS % (AUTO) 0.4 % (0-2); EOSINOPHILS % (AUTO) 1.3 % (0-6); HEMOGLOBIN 10.3 g/dL (12.0-15.5); LYMPHOCYTES % (AUTO) 5.7 % (13-45); MEAN CORPUSCULAR HEMOGLOBIN 29.2 pg (27.0-33.4); MEAN CORPUSCULAR HGB CONC 33.2 g/dL (32.0-36.0); MEAN CORPUSCULAR VOLUME 88 fl (80-97); MONOCYTES % (AUTO) 4.4 % (3-13); PLATELET COUNT 344 10^3/uL (150-450); RED BLOOD COUNT 3.51 10^6/uL (3.72-5.28); RED CELL DISTRIBUTION WIDTH 17.8 % (11.5-14.0); SEGMENTED NEUTROPHILS % (AUTO) 88.2 % (42-78); TOTAL CELLS COUNTED % (AUTO) 100 %; WHITE BLOOD COUNT 16.2 10^3/uL (4.0-10.5)
[2019-05-28 04:39] LABS: APPEARANCE,URINE SLIGHTLY-CLOUDY; BILIRUBIN,URINE NEGATIVE (NEGATIVE); COLOR,URINE YELLOW; GLUCOSE, URINE NEGATIVE (NEGATIVE); KETONES,URINE NEGATIVE (NEGATIVE); LEUKOCYTE ESTERASE,URINE SMALL (NEGATIVE); NITRITE,URINE NEGATIVE (NEGATIVE); PROTEIN,URINE 30 mg/dL (NEGATIVE); URINE SPECIFIC GRAVITY 1.024; UROBILINOGEN,URINE NEGATIVE mg/dL (<2.0)
[2019-05-28 04:43] LABS: ALBUMIN 4.1 g/dL (3.5-5.0); ALKALINE PHOSPHATASE 167 U/L (38-126); ANION GAP 10 (5-19); ASPARTATE AMINO TRANSFERASE 63 U/L (14-36); BILIRUBIN,DIRECT 0.1 mg/dL (0.0-0.4); BILIRUBIN,TOTAL 0.3 mg/dL (0.2-1.3); BLOOD UREA NITROGEN 23 mg/dL (7-20); CALCIUM 9.5 mg/dL (8.4-10.2); CARBON DIOXIDE 27 mmol/L (22-30); CHLORIDE 102 mmol/L (98-107); GLUCOSE 91 mg/dL (75-110); POTASSIUM 4.5 mmol/L (3.6-5.0); TOTAL PROTEIN 7.5 g/dL (6.3-8.2)
[2019-05-28] MEDS ORDERED: ONDANSETRON HCL INJ/PF 4 MG/2 ML SDV IV ONE (05:04)
[2019-05-28] MEDS ORDERED: HYDROMORPHONE HCL INJ/PF 2 MG/ML AMPULE IV ONE (05:04)
[2019-05-28] MEDS ORDERED: NORMAL SALINE 1000 ML 1,000 ML IV ONE (05:04)
--- NOTE | 2019-05-28 05:06 | ER Document Report ---
ED Medical Screen (RME) - General Chief Complaint: Upper Abdominal Pain Stated Complaint: ABDOMINAL PAIN Time Seen by Provider: 05/28/19 04:58 Notes: Patient is a 34-year-old female that comes to the emergency department for chief complaint of upper abdominal pain and vomiting. Patient states after eating tonight she started getting sharp pain and threw up twice. Pain is in the epigastric area and right upper quadrant and radiates to her back, she points. Patient's situation is complicated because she recently had a hysterectomy, had to be sent back to [facility] and reopened due to infection, currently has a wound VAC in place. However patient states although this is doing very well and she no longer has any lower abdominal pain. She denies fever. TRAVEL OUTSIDE OF THE [place] IN LAST 30 DAYS: No - Related Data Allergies/Adverse Reactions: No Known Allergies Allergy (Verified 04/27/19 18:13) Home Medications: Protonix 20mg. Oxycodone. Ibuprofen. Vit C. Tylenol. Valacyclovir Past Medical History - Social History Chew tobacco use (# tins/day): No Frequency of alcohol use: None Drug Abuse: None Renal/ Medical History: Denies: Hx Peritoneal Dialysis Past Surgical History: Reports: Hx Section - Immunizations Immunizations up to date: Yes Physical Exam - Vital signs Vitals: Temp Pulse Resp Pulse Ox 98.4 F 64 18 100 05/28/19 02:57 05/28/19 02:57 05/28/19 02:57 05/28/19 02:57 - Abdominal Tenderness: Tender - Lower abdominal wound VAC in place. No noted tenderness in this area. Patient is very tender in the epigastric and right upper quadrant Course - Re-evaluation Re-evalutation: 05/28/19 05:05 I have greeted and performed a rapid initial assessment of this patient. A comprehensive ED assessment and evaluation of the patient, analysis of test results and completion of the medical decision making process will be conducted by additional ED providers. - Vital Signs Vital signs: Temp Pulse Resp BP Pulse Ox 98.4 F 64 18 116/63 100 05/28/19 02:57 05/28/19 02:57 05/28/19 02:57 05/28/19 03:09 05/28/19 02:57 - Laboratory Result Diagrams: 05/28/19 04:15 05/28/19 04:15 Laboratory results interpreted by me: 05/28/19 05/28/19 05/28/19 04:15 04:15 04:15 WBC 16.2 H RBC 3.51 L Hgb 10.3 L Hct 31.0 L RDW 17.8 H Lymph % (Auto) 5.7 L Absolute Neuts (auto) 14.3 H Seg Neutrophils % 88.2 H BUN 23 H AST 63 H Alkaline Phosphatase 167 H Urine Protein 30 H Urine Blood LARGE H Ur Leukocyte Esterase SMALL H Urine Ascorbic Acid 40 H
--- NOTE | 2019-05-28 06:46 | ER Document Report ---
ED General - General Chief Complaint: Upper Abdominal Pain Stated Complaint: ABDOMINAL PAIN Time Seen by Provider: 05/28/19 04:58 TRAVEL OUTSIDE OF THE [place] IN LAST 30 DAYS: No - HPI Notes: Patient is a 34-year-old female who presents emergency department for evaluation of upper abdominal pain. She had an episode of this 4-5 nights ago. She states it started about 9:30 at night. It was worse when laying down, seem to be helped somewhat when she was walking around. She called her doctor, was called in a prescription for Protonix. She has not started taking it regularly. She tried some Protonix earlier without any significant relief. She states she has had 2 episodes of nonbloody, nonbilious emesis. Her vomitus was primarily what she had eaten and drank the night before. She points to hypogastric region, states the pain radiates in her back. She described as a squeezing pain. She states is been significantly improved since pain medicine here. Otherwise she denies any fevers. No urinary symptoms. She stopped her antibiotics for her uterine infection several days ago. Normal bowel movements. - Related Data Allergies/Adverse Reactions: No Known Allergies Allergy (Verified 04/27/19 18:13) Home Medications: Protonix 20mg -patient has only taken twice. Oxycodone 5 mg every 6 hours as needed. Ibuprofen 800 mg 3 times daily as needed. Vit C. Tylenol. Valacyclovir Past Medical History - General Information source: Patient, Relative - Social History Smoking Status: Never Smoker Chew tobacco use (# tins/day): No Frequency of alcohol use: None Drug Abuse: None Family History: Reviewed & Not Pertinent Patient has suicidal ideation: No Patient has homicidal ideation: No Renal/ Medical History: Denies: Hx Peritoneal Dialysis Past Surgical History: Reports: Hx Section - Immunizations Immunizations up to date: Yes Review of Systems - Review of Systems Constitutional: No symptoms reported EENT: No symptoms reported Cardiovascular: See HPI Respiratory: No symptoms reported Gastrointestinal: See HPI Genitourinary: No symptoms reported Female Genitourinary: See HPI Musculoskeletal: No symptoms reported Skin: No symptoms reported Neurological/Psychological: No symptoms reported Physical Exam - Vital signs Vitals: Temp Pulse Resp Pulse Ox 98.4 F 64 18 100 05/28/19 02:57 05/28/19 02:57 05/28/19 02:57 05/28/19 02:57 - Notes Notes: Vital signs reviewed, please refer to chart. Head is normocephalic, atraumatic. Pupils equal round, reactive to light. Neck is supple without meningismus. Heart is regular rate and rhythm. Lungs are clear to auscultation bilaterally. Abdomen has a wound VAC in place to the lower abdomen, overlying a firm uterus. Otherwise upper abdomen is soft and mildly tender to palpation in the epigastric without rebound or guarding. Normoactive bowel sounds throughout. Extremities without cyanosis, clubbing. Posterior calves are nontender. Peripheral pulses are equal. Skin is warm and dry. Patient is awake, alert, neurological exam is nonfocal. Course - Re-evaluation Re-evalutation: 05/28/19 09:23 Patient presents emergency department for evaluation of epigastric pain. She had initial laboratory investigations as ordered through triage. She was feeling significantly improved after pain medication. Laboratory vesication showed very modest elevation in AST and alk phos. Imaging, however, showed findings concerning for choledocholithiasis and potential cholecystitis. She does have a 16,000 white count. She was given a dose of Zosyn here. Unfortunately, she will require an ERCP, which is beyond her capabilities at this facility. I spoke with Dr. Brumfield, surgeon at [facility], who accepted the patient in transfer. She will go to the emergency department for further evaluation. 05/28/19 12:19 Patient remained stable. They are here for transport. She is medically stable for transfer to [facility]. - Vital Signs Vital signs: Temp Pulse Resp BP Pulse Ox 98.4 F 64 18 116/63 100 05/28/19 02:57 05/28/19 02:57 05/28/19 02:57 05/28/19 03:09 05/28/19 02:57 - Laboratory Result Diagrams: 05/28/19 04:15 05/28/19 04:15 Laboratory results interpreted by me: 05/28/19 05/28/19 05/28/19 04:15 04:15 04:15 WBC 16.2 H RBC 3.51 L Hgb 10.3 L Hct 31.0 L RDW 17.8 H Lymph % (Auto) 5.7 L Absolute Neuts (auto) 14.3 H Seg Neutrophils % 88.2 H BUN 23 H AST 63 H Alkaline Phosphatase 167 H Urine Protein 30 H Urine Blood LARGE H Ur Leukocyte Esterase SMALL H Urine Ascorbic Acid 40 H - Diagnostic Test Radiology reviewed: Reports reviewed Radiology results interpreted by me: 05/28/19 09:24 Abdomen Ultrasound 05/28/19 05:03 IMPRESSION: Cholelithiasis with choledocholithiasis. Mildly distended gallbladder with a positive sonographic Cardenas sign. No definite pericholecystic inflammatory changes. Cholecystitis may be present. A nuclear medicine scan may be useful in further evaluation. copyright 2011 [employer]- All Rights Reserved Discharge - Discharge Clinical Impression: Choledocholithiasis with acute cholecystitis Condition: Stable Disposition: [facility] Admitting Provider: Dr. Brumfield
--- NOTE | 2019-05-28 06:52 | RADIOLOGY REPORT (SQ) ---
EXAM DESCRIPTION: US ABDOMEN LIMITED COMPLETED DATE/TME: 05/28/2019 05:03 CLINICAL HISTORY: 34 years, Female, RUQ and epigastric pain, vomiting COMPARISON: None. TECHNIQUE: Grayscale and color images of the abdomen. LIMITATIONS: None. FINDINGS: The visualized portions of the pancreas, aorta, and IVC appear unremarkable. The liver is normal in size, shape, and echotexture. The liver measures 16.3 cm. The main portal vein demonstrates normal hepatopedal flow. Cholelithiasis with choledocholithiasis is noted. There is a 1 cm stone within the common bile duct. The gallbladder appears mildly distended. No definite pericholecystic fluid. A positive sonographic Cardenas sign was elicited. The common bile duct measures up to 1 cm in diameter. Right kidney measures 10.9 x 4.8 x 5.5 cm. No hydronephrosis. IMPRESSION: Cholelithiasis with choledocholithiasis. Mildly distended gallbladder with a positive sonographic Cardenas sign. No definite pericholecystic inflammatory changes. Cholecystitis may be present. A nuclear medicine scan may be useful in further evaluation. copyright 2010 [employer]- All Rights Reserved
[2019-05-28] MEDS ORDERED: PIPERACILLIN/TAZOBACTAM 3.375 GM VIAL IV ONE (08:16)
[2019-05-28 12:48] VITALS: BP 137/79
== END 2019-05-28 12:00 | disposition short-term general hospital (02) ==
LOC: ER 02:45
DX: K80.42 Calculus of bile duct with acute cholecystitis without obstruction (principal); R10.10 Upper abdominal pain, unspecified; R11.10 Vomiting, unspecified; Z79.899 Other long term (current) drug therapy
CPT/HCPCS: 99285; 96361; 96375; 96365; 36415; 83690; 85025; 80053; 81001; 76705; J1170; J2405; J7030; J2543